=== PATIENT | male | born 1955 | race Caucasian/White ===

== ENCOUNTER 2017-06-01 11:00 | Outpatient (RCR) | payer OTHER, SELFPAY ==
--- NOTE | 2017-06-01 14:23 | IE_ITS ---
Date: June 01, 2017 Referring: Jason Childs M.D. M.D. Diagnosis: right tensor fascia magi syndrome SUBJECTIVE: History of Present Illness: Fer reports a multi year history of intermittent lateral right thigh discomfort, posterior laterally. Noted increasing symptoms when walking for further distances. Also, has symptom reproduction with repetitive squatting and bending. We reviewed his referral, which indicates this is bilaterally, but he reports it is primarily on the right. Pain Ratin/10 at time of I.E., but can increase to 9/10 at its worst, which he uses some ice and BioFreeze for. Most recently, this occurred in bed when trying to sleep on his right side. Current Level of Function: Symptoms become exacerbated with repetitive squatting and right side lying. Also, has pain with longer distance walking. Previous Treatment: N/A Social: Retired from [employer] where he worked in [employer]. He is living with his significant other. Comorbidities: HBP, occasional parathesias in the right thigh, arthritis, thyroid dysfunction and left knee scope more than 5 years ago. Medications: See patient EMR. Quality of Life: ____ Excellent __x__ Good ____ Fair ____ Poor Standardized Measures: LEFS score: __9%__ OBJECTIVE: Posture: Obese male with mild pronation bilaterally. Tends to have increased toe out on the right. Observation: (behavior, atrophy, skin color, etc.) Does not appear to be in any acute discomfort. Gait: WNL and non antalgic. Palpation: Pain is elicited with palpation through the posterior anterior aspect of the right greater trochanter. Painfree with PA mobs to the lumbar spine. Painfree lumbar paraspinal palpation. Painfree throughout the glute medius and piriformis on the right. Increased complaints of discomfort through the proximal 2/3 of the IT band on the right; (-) on the left. Painfree throughout the lateral knee jt line palpation and IT band attachment distally. ROM: Hip ROM into flexion WNL bilaterally (painfree), ext rotation 35 A and 40 AA on the left; 35 A and 45 AA on the right, int rotation 10 to 15 A and 25 AA bilaterally, hip abduction 30 A and 35 AA bilaterally, knee flexion and extension WFL (painfree). Strength: 4/5 glute medius and lambert on the right (painfree) vs. 5/5 on the left. Quads and hams 5/5 bilaterally. Hip flexion 5/5 bilaterally. The patient is able to toe and heel walk independently. Flexibility: (+) ALFRED testing bilaterally, right more than left, regarded noted tightness. (+) Pedro test bilaterally, 5 above neutral. Hamstring length 65 bilaterally with SLR. Quadriceps 4 heel to buttock bilaterally in prone. Neuro: Sensation intact to light touch throughout bilateral LEs. DTRs not assessed. Special Tests: (-) dural tension testing with SLR or slump test. (-) ralph testing. (-) scour sign. (-) stork sign. Treatment: IE: 76932 x1 Therapeutic procedure: 85261 x1 Patient Education: I.E. followed by instruction in a HEP for IT band and piriformis stretching and application of ice. Direct treatment time: 9:30 til 10:30 A.M. ASSESSMENT: Patient is a 62-year-old male, referred for PT services with the diagnosis of bilateral tensor fascia magi syndrome. Patient presents with clinical signs and symptoms consistent with trochanteric bursitis with proximal IT band syndrome on the right (no significant findings on the left), as demonstrated by the following impairment level findings: Impaired motor function, muscle performance and ROM associated with connective tissue dysfunction Impairments are contributing to the following functional limitations: as indicated above Patient is assessed as: __x__ Low 24255 ____ Moderate 67496 ____ High 28624 complexity, based on the following: History: (list) per comorbidities Examination: (list) as functional limitations indicated above Presentation: (list) stable and uncomplicated Decision-Making: (list standardized measure) low based on the LEFS score ____ Patient requires skilled PT intervention to remediate the above functional limitations to return to: __x__ Premorbid level of function Prognosis: ____ Excellent __x__ Good ____ Fair ____ Poor STG: __6__ weeks. 1) (-) ALFRED testing 2) (-) Pedro testing 3) decrease pain by 50% 4) hip abductor / extensor strength greater than or equal to 4+/5 on the right LTG: __10__ weeks. 1) return to premorbid level of function 2) painfree functional mobility 3) able to resume his walking regime without symptom exacerbation PLAN: Patient to be seen 1x per week, for 10 weeks, adjusting frequency of visits per patient symptoms and response to treatment. Treatment to include: Manual therapy - 93766 - AA/PROM of the right hip into rotational motions as well as abduction using hold relax. Also, worked on IASTM via Graston Techniques through the IT band, posterior greater trochanteric region and TFL musculature. Will consider implementation of this on the left if he notices symptom onset. Will work on restoring glute lambert and glute medius strength as well. Session ended with cryotherapy to the hip and thigh. He agrees with this POC, and is to be discharged when the above goals have been met. Thank you for this referral. Please do not hesitate to contact me with any questions or concerns regarding this patient's plan of care.
--- NOTE | 2017-06-09 11:00 | PTTR_ITS ---
DATE: 06/09/17 SUBJECTIVE: Fer reports that his R hip is actually feeling pretty well. Has been compliant with his stretching and feeling looser in the hip. Has been holding up with his driving responsibilities without pain. Manual therapy: ([id number]). ITB, piriformis stretching using hold/relax. R hip mobilizations inferiorly, laterally followed by instrument assisted soft tissue mobilizations via Graston technique to R greater trochanter, ITB with fanning and sweeping with GT 1 and 4 followed by lateral hamstring, mid belly bicep femoris strumming with GT3 and some ITB splaying with GT4 in loose pack position from a muscular tension stand point. Ended with cryotherapy for 10 mins R thigh laterally in L sidelying position. Direct treatment time: 30 mins Total treatment time: 40 mins A: Holding up well with functional use of R LE without symptom exacerbation. Hasn't really encouraged any of the symptoms that he was initially evaluated for. P: Re-check next week, if he is holding up well at that visit, will likely put on hold for 1-2 week period. MM/dp
--- NOTE | 2017-06-18 08:20 | NT_ITS ---
Patient cancelled today's scheduled appointment. He is not feeling well. Has another appointment next Wednesday, the . Daina Graf Ross Lift Operator
--- NOTE | 2017-06-23 13:35 | PTTR_ITS ---
DATE: 06/23/17 SUBJECTIVE: Fer reports 75% improvement since starting P.T. Is compliant with his stretching, and finds this quite beneficial in controlling the lateral hip pain. Did experience mild left hip discomfort when driving to [place] and back. He has been more mindful of taking time to get out of the car, and this seems to have helped some of his leg discomfort. Is also complaining of mild shoulder tightness and pain with prolonged driving. OBJECTIVE: Manual therapy: ([id number]). Bilateral hip mobs, inferiorly and laterally, as well as manual distraction via leg pulls. Performed ITband and piriformis stretching via hold relax technique, left and right. Did apply PRTs to the right glute medius in prone. Strength tests 4+/5 for hip abduction and hip extension bilaterally. This was painfree. Therapeutic procedures ([id number]). * x See flow sheet: progressed HEP with standing corner pec stretches for postural correction and a standing cross legged lateral posterior hip stretch, left and right. Elected to hold on cryo post treatment. Direct treatment time: 11:00 til 11:45 A.M. Assessment: Holding up well with independent symptom management. I do feel he would benefit from cutting back on P.T., and he is in agreement. Plan: Recheck Fer x2 weeks. At that time, will talk about discharge with progression of HEP with particular focus on posterior and lateral hip stretching and capsular stretching. MM/gc
--- NOTE | 2017-08-06 11:07 | PTIDS_ITS ---
DATE: 08/06/17 REFERRING PROVIDER: Dr. Childs DIAGNOSIS: Tensor fascia magi syndrome ___X__ Patient did not return for a follow up appointment(s). ___x__ Patient had achieved an improvement in condition up to their prior level of function. Patient was instructed in a customized home exercise program to continue independently at home. The patient was given the option to call and schedule an appointment any time within a 3-week period if they experience a return of symptoms. Patient did not schedule follow up within this time frame. COMMENTS: ___X__ Discharge from PT at this time. ___[]__ Medicare: Unable to assign G-Codes due to the lack of a formal follow up visit. Patient did not schedule further visits after their last attended appointment and therefore a final assessment could not be performed.
== END 2017-06-28 | disposition home or self-care (01) ==
LOC: PT 06-09 11:00
PROVIDERS: PCP Family Medicine; Referring Provider Family Medicine; Visit Provider Family Medicine
DX: M76.31 Iliotibial band syndrome, right leg (principal)
CPT/HCPCS: 97110; 97140; 97161

== ENCOUNTER 2018-02-17 10:23 | Outpatient (CLI) | payer OTHER, SELFPAY ==
[2018-02-17 12:25] LABS: Anion Gap 8.6 mmol/L (3-11); BUN 14 mg/dL (7-18); CO2 30.4 mmol/L (21.0-32.0); CREATININE 0.86 mg/dL (0.70-1.30); Calcium 8.9 mg/dL (8.5-10.1); Chloride 104 mmol/L (98-107); Glucose 105 mg/dL (70-100); Potassium 3.7 mmol/L (3.5-5.1); Sodium 143 mmol/L (136-145); TSH (W/Ref FT4) 3.14 uIU/mL (0.358-3.74)
== END 2018-02-17 10:43 ==
PROVIDERS: PCP Family Medicine; Visit Provider Family Medicine
DX: E03.9 Hypothyroidism, unspecified (principal); I10 Essential (primary) hypertension
CPT/HCPCS: 36415; 80048; 84443

== ENCOUNTER 2019-01-10 08:22 | Outpatient (CLI) | payer OTHER, SELFPAY ==
[2019-01-10 12:36] LABS: Anion Gap 7.4 mmol/L (3-11); BUN 19 mg/dL (7-18); CO2 30.6 mmol/L (21.0-32.0); CREATININE 1.01 mg/dL (0.70-1.30); Calcium 9.2 mg/dL (8.5-10.1); Chloride 103 mmol/L (98-107); Glucose 123 mg/dL (70-100); Potassium 3.3 mmol/L (3.5-5.1); Sodium 141 mmol/L (136-145); TSH 3.54 uIU/mL (0.36-3.74)
== END 2019-01-10 08:42 ==
PROVIDERS: PCP Family Medicine; Visit Provider Nurse Practitioner
DX: R42 Dizziness and giddiness (principal)
CPT/HCPCS: 36415; 80048; 84443

== ENCOUNTER 2019-03-15 08:36 | Outpatient (CLI) | payer OTHER, SELFPAY ==
[2019-03-15 10:43] LABS: Potassium 3.5 mmol/L (3.5-5.1)
[2019-03-15 10:52] LABS: Hemoglobin A1C 5.4 % (3.8-5.6)
== END 2019-03-15 08:56 ==
PROVIDERS: PCP Family Medicine; Visit Provider Family Medicine
DX: Z00.00 Encounter for general adult medical examination without abnormal findings (principal); Z13.1 Encounter for screening for diabetes mellitus
CPT/HCPCS: 36415; 83036; 84132

== ENCOUNTER 2020-09-03 10:34 | Outpatient (CLI) | payer MEDICARE, OTHER, SELFPAY ==
[2020-09-04 13:04] LABS: COVID-19 RT-PCR UVMMC Result Negative (Negative)
== END 2020-09-03 10:35 | disposition home or self-care (01) ==
LOC: LBO 10:34
PROVIDERS: PCP Family Medicine; Visit Provider Family Medicine
DX: Z20.822 Contact with and (suspected) exposure to COVID-19 (principal)
CPT/HCPCS: U0003; U0005

== ENCOUNTER 2021-01-16 07:31 | Outpatient (CLI) | payer MEDICARE, OTHER, SELFPAY ==
--- NOTE | 2021-01-16 07:00 | DI.RAD_ITS ---
Exam(s) XR KNEE RT 3V AP,LAT,NESHA EXAM: XR KNEE RT 3V AP,LAT,NESHA CLINICAL HISTORY: knee pain on right for one week; hx of arthroscopy,M25.561. TECHNIQUE: 2D digital imaging was performed. COMPARISON: CR RIGHT KNEE 3 VIEWS from 10/06/2010 FINDINGS: There is no evidence of acute fracture although there does appear to be small joint effusion. There are mild-moderate degenerative changes in the medial compartment, slightly progressed from prev ious. Mild degenerative changes in the lateral compartment. Mild degenerative changes in the patell ofemoral compartment. Calcifications again noted off the anterosuperior aspect of the patella-insert ion site of the quadriceps tendon. There is also been progression of vascular calcification in popli teal artery. No osseous lesions. Bone density normal. IMPRESSION: Some progression of degenerative joint osteoarthritic changes when compared to the prior study of 201 1. DATA REPOSITORY: RADIATION DOSE DELIVERED:
== END 2021-01-16 07:51 ==
PROVIDERS: PCP Family Medicine; Visit Provider Family Medicine
DX: M25.561 Pain in right knee (principal); M17.11 Unilateral primary osteoarthritis, right knee
CPT/HCPCS: 73562

== ENCOUNTER 2021-02-25 11:49 | Outpatient (CLI) | payer MEDICARE, OTHER, SELFPAY ==
--- NOTE | 2021-02-25 11:45 | RT.EKG_ITS ---
APPROVED REPORT Exam: Resting ECG Reason for Exam: preop Patient Location: O HR:70 bpm ECG Measurements Heart Rate 70 AXIS RI 179 P 52 QRSd 95 QRS 4 QT 398 T 56 QTc 430 Conclusion Sinus rhythm...normal P axis, V-rate 60- 99 Normal Electrocardiogram
== END 2021-02-25 11:50 | disposition home or self-care (01) ==
LOC: DI.CM 11:51
PROVIDERS: PCP Family Medicine; Visit Provider Family Medicine
DX: Z01.818 Encounter for other preprocedural examination (principal)
CPT/HCPCS: 93010

== ENCOUNTER 2021-03-03 00:41 | Outpatient (CLI) | payer MEDICARE, OTHER, SELFPAY ==
--- NOTE | 2021-03-03 07:00 | DI.NM_ITS ---
APPROVED REPORT Exam: Exercise Treadmill Patient Location: Out-Patient Room/Bed: Stress Nurse: Cecily Broussard RN Ordering Provider:FE MAHMOOD, Contact Number: [phone] BMI: 34.66 Baseline Rhythm: Sinus Rhythm Indications: Chest pain Medical History Medical History: Hypertesnsion, hyperlipidemia, asthma, obesity, hypothyroidism, SVT, dizziness, ches t pain Cardiac Medications: Metoprolol succinate, aspirin, albuterol sulfate, famotidine, levothyroxine, jessica denafil Allergies: Oxycodone Cardiac Risk Factors: Hypertension, hyperlipidemia, asthma, obesity, smoker (former), family hx Previous Cardiac Procedures: None Pretest Chest Pain Characteristics: None Exercise History: Sedentary Physical Disabilities: None Lung Sounds: Clear to auscultation, Clear to auscultation Heart Sounds: Regular Stress Test Details Test: Exercise stress testing was performed using a Shaquille protocol. Nuclear Acquisition: Rest Tc-99m/Stress Tc-99m 1 day Rest Isotope: Tc-99m Sestamibi. Dose: 12.0 Date: 03/03/2021 Injection Time: 0845 Stress Isotope: Tc-99m Sestamibi. Dose: 39.0 Date: 03/03/2021 Injection Time: 1022 HR Resting HR Supine: 75 bpm Max Heart Rate (APMHR): 154.430373 bpm Resting HR Standin bpm Target HR (85% APMHR): 130.048940 bpm Max HR Achieved: 148 bpm % of APMHR: 96.10 Recovery HR: 98 bpm HR response to stress: Normal HR response to stress Comment: Metoprolol succinate held for 24 hrs prior to test BP Resting BP Supine: 138/80 mmHg Resting BP Standin/78 mmHg Max BP: 168/82 mmHg Recovery BP: 150/80 mmHg BP response to stress: Blunted blood pressure response to stress. ECG Resting ECG: Sinus Rhythm Ectopy: None Stress ECG: Sinus Tachycardia ST Change: Horizontal ST depression, Upsloping ST depression Lead(s): II, III, AVF Stage: [address] Deviation: 1 mm Arrhythmia: Frequent PACs, occasional multifocal PVCs, couplet Recovery ECG: Sinus Rhythm Recovery ST Change: Horizontal ST depression Lead(s): II, III, AVF Recovery ST Deviation: 0.5 mm Recovery Arrhythmia: Frequent PACs, occasional multifocal PVCs Comment: ST depressions return to baseline by minute 7 of recovery Clinical Reason for Termination: Fatigue Stress Symptoms: General Fatigue, mild dyspnea Exercise duration: 8 min58 sec Highest Stage Reached: Stage 3: 3.4 mph at 14% grade. Exercise capacity: 10.16 METs Horn Treadmill Score: 8.1 Rate Pressure Product: 11322 Stress ECG Conclusion 1. Resting electrocardiogram was normal 2. Patient exercised on the Shaquille protocol and completed a workload of 10.16 METS, stopping due to fa tigue 3. Normal heart rate response to exercise. Patient achieved 96% of predicted heart rate for age. Mi ldly blunted blood pressure response to exercise 4. Electrocardiographically the test was negative for myocardial ischemia 5. Atrial and ventricular ectopic beats were noted Horn Treadmill Score is 8.1 which is Low risk. Stress Test Summary STAGE Time (mins) Speed (mph) Grade (%) HR BP SYMPTOMS METS Supine 75 138/80 Standing 77 138/78 SpO2 95% 1 3 1.7 10 103 148/82 Mild SOB, SpO2 96% 4.6 2 6 2.5 12 115 144/86 SpO2 96% 7 3 9 3.4 14 143 146/84 SpO2 96% 10.2 1 min recovery 129 148/84 SOB resolved, SpO2 97% 3 min recovery 107 168/82 SpO2 97% 6 min recovery 98 150/80 SpO2 97% MPI Conclusion Normal myocardial perfusion without ischemia or prior infarction EF 58% Radiologist Interpretation Radiologist agrees with Retail Merchandising Specialist's Interpretation. Radiologist Interpretation by: Kristen Awan MD Interpretation Date/Time: 03/03/2021 16:02:05
== END 2021-03-03 01:01 ==
PROVIDERS: PCP Family Medicine; Visit Provider Family Medicine
DX: R07.9 Chest pain, unspecified (principal); I10 Essential (primary) hypertension; E78.5 Hyperlipidemia, unspecified; J45.909 Unspecified asthma, uncomplicated; E66.9 Obesity, unspecified; Z87.891 Personal history of nicotine dependence; Z82.49 Family history of ischemic heart disease and other diseases of the circulatory system; I49.1 Atrial premature depolarization; I49.3 Ventricular premature depolarization
CPT/HCPCS: 78452; 93016; 93018; 93017

== ENCOUNTER 2021-03-07 03:45 | Outpatient (CLI) | payer MEDICARE, OTHER, SELFPAY ==
[2021-03-07 11:17] LABS: Hemoglobin A1C 5.3 % (<5.7)
[2021-03-07 12:09] LABS: CREATININE 1.1 mg/dL (0.70-1.30); Calculated LDL 136 mg/dL (<100); Cholesterol 217 mg/dL (<200); HDL Cholesterol 58 mg/dL (40-60); Potassium 3.4 mmol/L (3.5-5.1); Triglyceride 119 mg/dL (<150)
== END 2021-03-07 03:46 | disposition home or self-care (01) ==
LOC: LBO 03:45
PROVIDERS: PCP Family Medicine; Visit Provider Family Medicine
DX: R73.9 Hyperglycemia, unspecified (principal); I10 Essential (primary) hypertension; E78.5 Hyperlipidemia, unspecified
CPT/HCPCS: 36415; 80061; 82565; 83036; 84132

== ENCOUNTER 2021-04-14 01:24 | Outpatient (CLI) | payer MEDICARE, OTHER, SELFPAY ==
[2021-04-14 20:12] LABS: COVID-19 PCR Negative (Negative)
[2021-04-14 20:14] LABS: Source Nasal/Nares
== END 2021-04-14 01:25 | disposition home or self-care (01) ==
LOC: LBO 01:24
PROVIDERS: PCP Family Medicine; Visit Provider Ophthalmology Ophthalmic Plastic and Reconstructive Surgery
DX: Z20.822 Contact with and (suspected) exposure to COVID-19 (principal); Z01.818 Encounter for other preprocedural examination
CPT/HCPCS: 87635

== ENCOUNTER → 2021-09-08 12:46 | Outpatient (CLI) | payer MEDICARE, OTHER, SELFPAY ==
--- NOTE | 2021-09-08 10:30 | DI.RAD_ITS ---
Exam(s) XR HAND LT COMPLETE EXAM: XR HAND LT COMPLETE CLINICAL HISTORY: Left hand pain and swelling S62.339A FX. TECHNIQUE: 2D digital imaging was performed. COMPARISON: CR RIGHT THUMB from 01/16/2013 FINDINGS: 3 views There is soft tissue swelling. No acute fractures. No radiopaque foreign body. No radiographic ban dence of osteomyelitis. IMPRESSION: No fractures evident. DATA REPOSITORY: RADIATION DOSE DELIVERED:
== END ==
PROVIDERS: PCP Family Medicine; Visit Provider Physician Assistant Medical
DX: M79.642 Pain in left hand; M79.89 Other specified soft tissue disorders; S62.339A Displaced fracture of neck of unspecified metacarpal bone, initial encounter for closed fracture
CPT/HCPCS: 73130

== ENCOUNTER 2021-11-12 09:36 | Emergency (ER) | payer MEDICARE, OTHER, SELFPAY ==
[2021-11-12] VITALS (35 sets, daily range): BP systolic 161–184; BP diastolic 76–95; PULSE 71–89; RESP 12–22; TEMP 36.7; O2SAT 96
--- NOTE | 2021-11-12 09:30 | RT.EKG_ITS ---
APPROVED REPORT Exam: Resting ECG Reason for Exam: chest pressure Patient Location: E HR:76 bpm ECG Measurements Heart Rate 76 AXIS WA 170 P 60 QRSd 94 QRS 13 QT 402 T 34 QTc 452 Conclusion Sinus rhythm...normal P axis, V-rate 60- 99 Physician: no stemi, unchanged from prior
--- NOTE | 2021-11-12 10:00 | DI.RAD_ITS ---
Exam(s) XR CHEST 2V PA LATERAL EXAM: XR CHEST 2V PA LATERAL CLINICAL HISTORY: chest pain. TECHNIQUE: 2D digital imaging was performed. COMPARISON: CR CHEST 2 VIEWS PA,LAT from 03/09/2016 FINDINGS: 2 views: Heart size is upper normal. The mediastinum is not widened. Lungs are clear. No infiltrates nor pleural effusions. IMPRESSION: No acute pulmonary findings. DATA REPOSITORY: RADIATION DOSE DELIVERED:
--- NOTE | 2021-11-12 10:01 | W.ED.GENAD ---
Discharge Plan Disposition Patient Disposition: HOME Condition: Improving Discharge Details Clinical Impression: Chest pain Primary Care Provider: Alvaro Hernadez ED Provider: Salvador Rosado Home Meds and New Rx's Prescriptions: Continued naproxen sodium [Aleve] 220 mg capsule 440 mg PO HS loratadine [Allergy Relief (loratadine)] 10 mg tablet 10 mg PO DAILY aspirin [Aspir-81] 81 MG tablet,delayed release (DR/EC) 81 mg PO DAILY Qty: 90 triamcinolone acetonide 80 GM ointment 80 gm Topical BID Qty: 1 omeprazole 40 mg capsule,delayed release(DR/EC) 40 mg PO DAILY Qty: 90 3RF albuterol sulfate [Ventolin HFA] 90 mcg/actuation HFA aerosol inhaler 2 puff inhalation QID PRN (Reason: shortness of breath or wheezing) Qty: 8.5 1RF famotidine [Pepcid] 20 mg tablet 20 mg PO DAILY Qty: 90 3RF hydrochlorothiazide 25 mg tablet 25 mg PO DAILY Qty: 90 3RF levothyroxine 75 mcg tablet 75 mcg PO DAILY Qty: 90 3RF metoprolol succinate 50 mg tablet extended release 24 hr 50 mg PO DAILY Qty: 90 3RF sildenafil [Viagra] 100 mg tablet 100 mg PO DAILY PRN (Reason: sexual activity) Qty: 10 2RF Rx Instructions: administer 30 minutes to 4 hours before activity Discharge Instructions Instructions: Chest Pain (ED) Additional Instructions: At this time no obvious source was noted for your chest pain and emergency work-up was negative at this time. While I do feel that you are at low risk for discharge home if you develop any new or significant worsening of symptoms or change in your condition return immediately to the emergency department for further reassessment. Otherwise continue to take your normal daily medications and follow-up with your primary care provider for reassessment and further treatment as needed. Referrals: Alvaro Hernadez MD [Primary Care Provider] - 5 days Discharge Data Discharge Date/Time-TO BE ENTERED AT DEPARTURE: 11/12/21 13:49 Medical Decision Making Patient presenting to the emergency department for chief complaint of chest pain. Patient states that this started approximately 1 hour prior to arrival and he was driving. He states that it only lasted a couple minutes and then self resolved but then returned at a lesser degree but still is present. He describes this as a chest pressure and tightening on the left side of his chest with no radiation. Patient denies all other symptoms. Physical exam is unremarkable. We will plan on doing standard cardiac work-up. Of notation with review of previous medical records patient did have a stress test within the last year that showed no worrisome findings. Patient has past medical history of hypertension chewing tobacco use and SVT Please see physician interpretation for full interpretation of EKG but patient is in sinus rhythm with no findings to suggest STEMI. Review of labs show a unremarkable CBC, CMP with slightly low potassium at 3.1, carbon dioxide 32.7, elevated total bili at 1.4 and negative initial troponin. Chest x-ray reviewed by myself and radiologist and shows no acute worrisome findings. Reassessed patient and patient continues to endorse no pain or discomfort. Will give patient oral potassium pending delta troponin. Delta troponin is negative and patient continues to state he is pain-free. Did further discuss situation prior to chest pain and he does state that he had been thinking about the current rough social situation with significant other that has been difficult for him. Question of possible anxiety causing symptoms. Given otherwise negative work-up and that patient has had stress test within the last year and no worrisome findings I do feel that patient is able to be safely discharged to primary care for further follow-up. Patient is agreeable to this and states no concern after discussion of potential risks of discharge versus further inpatient work-up which I do not feel he needs at this time. After discussion of diagnosis and plan of care patient has no further needs, questions, or concerns and states clear understanding to return to the emergency department for any worsening symptoms. This documentation was generated using [employer] system, please disregard any oddities of phrase or misspellings. Imaging Data Radiologic Study: Attestation: I personally reviewed and interpreted this imaging study as follows: Imaging: X-Ray Radiologist's impression: FINDINGS: 2 views: Heart size is upper normal. The mediastinum is not widened. Lungs are clear. No infiltrates nor pleural effusions. IMPRESSION: No acute pulmonary findings. HPI General Mode of arrival: ambulatory. Date/Time Provider Initiated Documentation: 11/12/21 09:40. Limitations to Documentation: no limitations. Information obtained by: patient, RN notes reviewed and old records reviewed. History of Present Illness 66 year old M presents to the emergency department with the chief complaint of Chest pain, described as moderate, Quality is described as other (Pressure -now resolved), and is localized to the chest. Patient reports no radiation. Patient started experiencing this hour(s) (1) and it has been intermittent. No relieving factors improve symptom(s), No exacerbating factors reported . Patient notes no other symptoms.. Patient did receive the following treatments prior to arrival, none Related Data Home Medications Medication Instructions Recorded Confirmed aspirin 81 mg tablet,delayed 81 mg PO DAILY #90 tab-caps 11/06/15 11/12/21 release (Aspir-) triamcinolone acetonide 0.025 % 80 gm topical BID ##1 03/25/16 11/12/21 topical ointment naproxen sodium 220 mg capsule 440 mg PO HS 02/15/19 11/12/21 (Aleve) omeprazole 40 mg capsule,delayed 40 mg PO DAILY #90 caps 10/17/19 11/12/21 release albuterol sulfate 90 mcg/actuation 2 puff inhalation QID PRN 06/12/20 11/12/21 aerosol inhaler (Ventolin HFA) shortness of breath or wheezing #8.5 grams famotidine 20 mg tablet (Pepcid) 20 mg PO DAILY #90 tab-caps 12/04/20 11/12/21 hydrochlorothiazide 25 mg tablet 25 mg PO DAILY #90 tabs 12/04/20 11/12/21 levothyroxine 75 mcg tablet 75 mcg PO DAILY #90 tab-caps 12/04/20 11/12/21 metoprolol succinate 50 mg 50 mg PO DAILY #90 tabs 12/04/20 11/12/21 tablet,extended release 24 hr loratadine 10 mg tablet (Allergy 10 mg PO DAILY 02/25/21 11/12/21 Relief (loratadine)) sildenafil 100 mg tablet (Viagra) 100 mg PO DAILY PRN sexual 07/21/21 11/12/21 activity #10 tabs Previous Rx's Medication Instructions Recorded omeprazole 40 mg capsule,delayed 40 mg PO DAILY #90 caps 10/17/19 release albuterol sulfate 90 mcg/actuation 2 puff inhalation QID PRN 06/12/20 aerosol inhaler (Ventolin HFA) shortness of breath or wheezing #8.5 grams famotidine 20 mg tablet (Pepcid) 20 mg PO DAILY #90 tab-caps 12/04/20 hydrochlorothiazide 25 mg tablet 25 mg PO DAILY #90 tabs 12/04/20 levothyroxine 75 mcg tablet 75 mcg PO DAILY #90 tab-caps 12/04/20 metoprolol succinate 50 mg 50 mg PO DAILY #90 tabs 12/04/20 tablet,extended release 24 hr sildenafil 100 mg tablet (Viagra) 100 mg PO DAILY PRN sexual 07/21/21 activity #10 tabs Allergies Allergy/AdvReac Type Severity Reaction Status Date / Time oxycodone HCl [From Percocet] Allergy Verified 11/12/21 09:49 General Stated Complaint: Chest Pain MANDY: 2 Review of Systems Constitutional Constitutional: Denies chills, Denies fever(s) and Denies malaise Cardiovascular Cardiovascular: Reports as per HPI, Reports chest pain, Denies chest pain with activity, Denies syncope, Denies irregular heart rhythm, Denies palpitations and Denies dyspnea Respiratory Respiratory: Denies cough, Denies hemoptysis and Denies dyspnea Gastrointestinal Gastrointestinal: Denies abdominal pain, Denies nausea and Denies vomiting Neurologic Neurologic: Denies syncope Psychiatric Psychiatric: Reports anxiety and Reports depression Endocrine Endocrine: Denies cold intolerance, Denies heat intolerance and Denies palpitations PFSH All Active Problems (Updated 11/12/21 @ 13:37 by Salvador Rosado NP) Flushing (Acute) Blocked tear duct (Acute) Posterior right knee pain (Acute) Seborrheic keratosis (Acute) Right forearm pain (Acute) Low back pain (Acute) Lightheadedness (Acute) Erectile dysfunction (Acute) History of arthroscopy of knee (Acute) History of wheezing (Acute) Rectal hemorrhage (Acute) Status post foot surgery (Acute) Caregiver burden (Acute 12/15/13) Insomnia (Chronic) Hypothyroid (Chronic) check TSH Obesity (Chronic) continue to work on weight loss Dupuytren's contracture (Chronic) SVT (supraventricular tachycardia) (Acute) Rosacea (Acute) Peyronie disease (Acute) Neuropathic pain, arm (Acute) left arm that is improved Kidney stone (Acute 01/28/06) bilateral Essential hypertension (Acute 12/08/12) check labs continue same meds Dizziness (Acute 11/03/16) Chewing tobacco use (Acute) Chest pain (Acute) normal MPI 12/2007 normal MPI 10/14 Atopic dermatitis (Acute) Acquired hallux rigidus (Acute) Medical History Atopic dermatitis Kidney stone Neuropathic pain, arm Rosacea SVT (supraventricular tachycardia) Surgical History Arthroplasty of knee (~12/2010) FOOT SURGERY Hallux rigidus of both feet with surgery in 2005 Family History Mother , age 79 Heart disease Neoplasm LUNG Sister No problems noted. Maternal Grandfather No problems noted. Paternal Grandfather Prostate cancer Maternal Grandmother Cancer Paternal Grandmother Cancer Sister No problems noted. Sister No problems noted. Daughter No problems noted. Social History Smoking/Tobacco Use Status: Former Tobacco Use Quit Date: 03/01/87 Tobacco: How many years used: 22 Second Hand Exposure: Yes Smoking risk assessment performed?: Yes Alcohol Intake: current Alcohol Intake frequency: a few times a month Alcohol type: beer Drug use: Never Substance use type: does not use Caregiver/Support person: No Household members: significant other Housing: house Communication Needs: None Do you need help understanding health information?: Never Pets and animals: Yes Pets and animals: dog(s) Do you think of yourself as: straight/heterosexual Current gender identity: male What is your relationship status?: living with partner How often do you talk on the phone with friends or family?: once per week How often do you get together with friends or relatives?: once per week How often do you attend latter-day or presybeterian services?: 4 or more times per year Do you belong to any clubs or organized social groups?: yes Panel score (0-1 are the most socially isolated patients): 3 What type of physical activity do you participate in: walking Duration: < 15 minutes/day Frequency: 1-2 times per week Special alex needs: No Seatbelt use: always Helmet use: No Drive intox 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: No Do you feel safe at home: Yes Do you feel safe in your relationship?: Yes Exam Const General: cooperative, healthy appearing, comfortable, no acute distress, not diaphoretic and not ill appearing Nutritional Appearance: average body habitus Orientation: alert, awake and oriented x3 Limitations: mental status not altered Neck Neck: normal visual inspection, full ROM, trachea midline, supple and no anterior neck swelling Carotids: normal carotid upstroke and no bruits Chest Chest: normal inspection of the chest Resp Effort & Inspection: normal respiratory effort and able to speak in complete sentences Auscultation: clear to auscultation bilaterally Cardio Jugular venous pressure: no JVD Palpation: normal PMI Rate: regular rate Rhythm: regular rhythm Heart Sounds: S1 normal, S2 normal, no click, no gallops, no murmurs and no rubs Bruits: no abdominal aortic bruits and no carotid bruits Pulses: radial pulses present bilaterally 2+ GI Inspection: normal to inspection Palpation: soft, no aortic enlargement, no pulsatile masses and nontender Auscultation: normal bowel sounds Skin General skin exam: no rashes or lesions noted Neuro General: patient alert, patient awake, patient oriented x3, tone normal and moves all extremities Course Vital Signs Vital signs: Vital Signs Temperature 36.7 C 11/12/21 09:39 Pulse 84 11/12/21 09:39 Respiratory Rate 17 11/12/21 09:39 Blood Pressure 175/87 H 11/12/21 09:39 Pulse Oximetry 96 11/12/21 09:39 Temperature 36.7 C 11/12/21 09:39 Temperature Source Temporal Artery Scan 11/12/21 09:39 Pulse 84 11/12/21 09:39 Respiratory Rate 21 11/12/21 09:44 Respiratory Effort Non-Labored 11/12/21 09:44 Respiratory Depth Normal 11/12/21 09:44 Respiratory Pattern Normal 11/12/21 09:44 Blood Pressure 175/87 H 11/12/21 09:39 Blood Pressure Position Sitting 11/12/21 09:39 Pulse Oximetry 96 11/12/21 09:39 Oxygen Delivery Method Room Air 11/12/21 09:39 Oxygen Flow Rate 0 11/12/21 09:39 Pain Level 0 11/12/21 09:44 PAWSS Have you Been Recently Intoxicated or Drunk Within the Last 30 days?: No Have you Ever Experienced Previous Episodes of Alcohol Withdrawal?: No Have you ever Experienced Withdrawal Seizures?: No Have you ever Experienced Delirium Tremens(DT)s?: No Have you ever undergone Alcohol Rehabilitation Treatment (i.e, inpt ot outpatient treatment programs)?: No Have you ever Experienced Blackouts?: No Have you ever Combined Alcohol with other Downers within the last 90 days?: No Have you ever Combined Alcohol with any other Substance of Abuse during the last 90 days?: No Result: 0
[2021-11-12 10:23] LABS: Abs Immature Grans 0.02 10^3/uL (0.0-0.06); Absolute Basophil Count 0.04 10^3/uL (0.0-0.2); Absolute Eosinophil Count 0.11 10^3/uL (0.0-0.7); Absolute Lymphocyte Count 1.13 10^3/uL (1.2-3.4); Absolute Monocyte Count 0.72 10^3/uL (0.1-0.8); Absolute Neutrophil Count 4.41 10^3/uL (1.2-6.7); Basophils % 0.6; Eosinophils % 1.7; HCT 46.1 % (40.0-50.0); HGB 15.7 g/dL (13.5-17.5); Immature Grans % 0.3; Lymphocytes % 17.6; MCH 30.3 pg (27.0-33.0); MCHC 34.1 % (32.0-36.0); MCV 89 fL (80-95); MPV 10.3 fL (8.0-11.0); Monocytes % 11.2; Neutrophils % 68.6; Platelet Count 218 10^3/uL (130-400); RBC 5.18 10^6/uL (4.36-5.78); RDW 13.2 % (11.8-14.1); RDW-SD 43.3 fL; WBC 6.43 10^3/uL (4.4-10.8)
[2021-11-12 10:44] LABS: ALT 26 U/L (16-63); AST 18 U/L (15-37); Albumin 4.4 g/dL (3.4-5.0); Alkaline Phosphatase 97 U/L (46-116); Anion Gap 6.3 mmol/L (3-11); BUN 12 mg/dL (7-18); Bilirubin, Total 1.4 mg/dL (0.2-1.0); CO2 32.7 mmol/L (21.0-32.0); Calcium 9.3 mg/dL (8.5-10.1); Chloride 102 mmol/L (98-107); Estimated GFR 82.49 (mL/min/1.73m2); Glucose 109 mg/dL (74-106); Magnesium 2.1 mg/dL (1.8-2.4); Potassium 3.1 mmol/L (3.5-5.1); Sodium 141 mmol/L (136-145); Total Protein 7.8 g/dL (6.4-8.2); Troponin I < 50 ng/L (<or=60)
[2021-11-12] MEDS: Potassium Chloride 20 MEQ TABCR 40 MEQ PO (11:52)
[2021-11-12 12:59] LABS: Troponin I < 50 ng/L (<or=60)
--- NOTE | 2021-11-12 15:58 | NUR.NOTE ---
Nursing Note: Referral faxed to PCP for re-assessment of chest pain in 3 days to 1 week.
== END 2021-11-12 13:49 | disposition home or self-care (01) ==
PROVIDERS: Emergency Provider Nurse Practitioner Family; PCP Family Medicine
DX: R07.9 Chest pain, unspecified (principal); E87.6 Hypokalemia; R79.81 Abnormal blood-gas level; R17 Unspecified jaundice; Z79.82 Long term (current) use of aspirin; Z87.891 Personal history of nicotine dependence
CPT/HCPCS: 36415; 80053; 93005; 99284; 71046; 83735; 84484; 85025; 93010; 99285

== ENCOUNTER 2021-11-20 08:24 | Outpatient (CLI) | payer MEDICARE, OTHER, SELFPAY ==
[2021-11-20 13:46] LABS: TSH (W/Ref FT4) 2.18 uIU/mL (0.36-3.74)
== END 2021-11-20 08:25 | disposition home or self-care (01) ==
LOC: LOS 08:24
PROVIDERS: PCP Family Medicine; Visit Provider Family Medicine
DX: E03.9 Hypothyroidism, unspecified (principal)
CPT/HCPCS: 36415; 84443

== ENCOUNTER 2022-05-07 02:58 | Outpatient (CLI) | payer MEDICARE, OTHER, SELFPAY ==
[2022-05-07 13:08] LABS: Calculated LDL 157 mg/dL (<100); Cholesterol 224 mg/dL (<200); HDL Cholesterol 57 mg/dL (40-60); Potassium 3.6 mmol/L (3.5-5.1); Triglyceride 54 mg/dL (<150)
[2022-05-07 23:55] LABS: PSA, Screening 0.8 ng/mL (<=4.5)
== END 2022-05-07 02:59 | disposition home or self-care (01) ==
LOC: LOS 02:58
PROVIDERS: PCP Family Medicine; Visit Provider Family Medicine
DX: I10 Essential (primary) hypertension (principal); E78.5 Hyperlipidemia, unspecified; Z12.5 Encounter for screening for malignant neoplasm of prostate
CPT/HCPCS: 36415; 80061; 84153; 84132

== ENCOUNTER 2022-07-29 04:32 | Outpatient (CLI) | payer MEDICARE, OTHER, SELFPAY ==
[2022-07-29 12:55] LABS: TSH (W/Ref FT4) 2.82 uIU/mL (0.36-3.74); Vitamin B12 229 pg/mL (193-986)
[2022-07-29 21:02] LABS: Lab Add On Test DONE
[2022-07-29 21:37] LABS: Folate > 20.0 ng/mL (8.6-20.0)
== END 2022-07-29 04:33 | disposition home or self-care (01) ==
LOC: LOS 04:32
PROVIDERS: PCP Family Medicine; Visit Provider Family Medicine
DX: D64.9 Anemia, unspecified (principal); E03.9 Hypothyroidism, unspecified; E53.8 Deficiency of other specified B group vitamins
CPT/HCPCS: 36415; 82607; 82746; 84443

== ENCOUNTER 2022-10-01 04:28 | Outpatient (CLI) | payer MEDICARE, OTHER, SELFPAY | END 2022-10-01 04:29 | disposition home or self-care (01) | PROVIDERS: PCP Family Medicine; Visit Provider Family Medicine | DX: E53.8 Deficiency of other specified B group vitamins (principal); E03.9 Hypothyroidism, unspecified; K21.9 Gastro-esophageal reflux disease without esophagitis; R53.83 Other fatigue; I10 Essential (primary) hypertension; F41.8 Other specified anxiety disorders; Z79.899 Other long term (current) drug therapy | CPT/HCPCS: 36415; 80186 ==

== ENCOUNTER 2023-06-03 04:59 | Outpatient (CLI) | payer MEDICARE, OTHER, SELFPAY ==
[2023-06-03 13:04] LABS: Calculated LDL 154 mg/dL (<100); Cholesterol 222 mg/dL (<200); HDL Cholesterol 48 mg/dL (40-60); TSH (W/Ref FT4) 3.25 uIU/mL (0.36-3.74); Triglyceride 103 mg/dL (<150)
[2023-06-03 13:14] LABS: Vitamin D 25 Total 14.6 ng/mL (30-100)
== END 2023-06-03 05:00 | disposition home or self-care (01) ==
LOC: LOS 04:59
PROVIDERS: PCP Family Medicine; Visit Provider Family Medicine
DX: G40.909 Epilepsy, unspecified, not intractable, without status epilepticus; E78.5 Hyperlipidemia, unspecified; E03.9 Hypothyroidism, unspecified
CPT/HCPCS: 36415; 80061; 82306; 84443

== ENCOUNTER → 2023-09-20 08:43 | Outpatient (BNVA) | payer MEDICARE, OTHER, SELFPAY | PROVIDERS: PCP Family Medicine; Referring Provider Family Medicine; Visit Provider Student in an Organized Health Care Education/Training Program | DX: M72.0 Palmar fascial fibromatosis [Dupuytren] (principal); M65.341 Trigger finger, right ring finger | CPT/HCPCS: 20550; 99203; J1010 ==

== ENCOUNTER 2023-10-09 13:45 | Emergency (ER) | payer MEDICARE, OTHER, SELFPAY ==
[2023-10-09 13:58] VITALS: BP 164/74; PULSE 103; RESP 12; TEMP 38.6; O2SAT 95
--- NOTE | 2023-10-09 14:45 | DI.RAD_ITS ---
Exam(s) XR CHEST 2V PA LATERAL EXAM: XR CHEST 2V PA LATERAL CLINICAL HISTORY: covid, persistent cough. TECHNIQUE: 2D digital imaging was performed. COMPARISON: CR XR CHEST 2V PA LATERAL from 11/12/2021 FINDINGS: 2 views: Heart size is upper normal. The mediastinum is not widened. No new confluent infiltrates nor pleural effusions. No pulmonary edema. No pneumothorax. IMPRESSION: No obvious acute plain film pulmonary findings.Given the history of clinically indicated noninfused C T scan can be performed to determine if there are subtle ground-glass infiltrates not visible on plai n films. DATA REPOSITORY: RADIATION DOSE DELIVERED:
[2023-10-09] MEDS: Acetaminophen 325 MG TAB 650 MG PO (15:38)
[2023-10-09] MEDS: predniSONE 20 MG TAB 40 MG PO (15:38)
[2023-10-09] MEDS: Normal Saline 1,000 ML 1000 ML IV (15:38)
[2023-10-09 15:44] LABS: Lactate 1.1 mmol/L (0.6-1.4)
--- NOTE | 2023-10-09 15:44 | ED.GENADUL_ITS ---
Discharge Plan Disposition Patient Disposition: Home Condition: Stable Discharge Details Clinical Impression: COVID-19, Pneumonia Primary Care Provider: Alvaro Hernadez ED Provider: Mela Jim Home Meds and New Rx's Prescriptions: New benzonatate 100 mg capsule 100 mg PO Q4H PRNQty: 10 0RF prednisone 20 mg tablet 40 mg PO DAILY 3 Days Qty: 6 0RF doxycycline hyclate 100 mg tablet 100 mg PO BID 7 Days Qty: 14 0RF Continued diphenhydramine HCl [Unisom SleepGels] 50 mg capsule 100 mg PO QHS metoprolol succinate 50 mg tablet extended release 24 hr 50 mg PO DAILY Qty: 90 3RF famotidine [Pepcid] 20 mg tablet 20 mg PO DAILY PRN (Reason: gerd) Qty: 90 3RF losartan 50 mg tablet 50 mg PO DAILY Qty: 30 3RF amoxicillin-pot clavulanate 875-125 mg tablet 1 tab PO BID 7 Days Qty: 14 0RF Rx Instructions: Take with meal. Take 1 pill every 12 hours x 7days loratadine [Allergy Relief (loratadine)] 10 mg tablet 10 mg PO DAILY acetaminophen [Tylenol 8 Hour] 650 mg tablet extended release 1,300 mg PO Q8H PRN terbinafine HCl 250 mg tablet 250 mg PO DAILY Qty: 28 0RF Rx Instructions: take daily for one week for each of next 4 months, then start maintenance therapy terbinafine HCl 250 mg tablet 250 mg PO DAILY Qty: 7 3RF Rx Instructions: after starter dosing, take daily for one week every 3 months aspirin [Aspir-81] 81 MG tablet,delayed release (DR/EC) 81 mg PO DAILY Qty: 90 triamcinolone acetonide 80 GM ointment 80 gm Topical BID Qty: 1 omeprazole 40 mg capsule,delayed release(DR/EC) 40 mg PO DAILY Qty: 90 3RF sertraline 50 mg tablet 50 mg PO DAILY Qty: 30 0RF sildenafil [Viagra] 100 mg tablet 100 mg PO DAILY PRN (Reason: sexual activity) Qty: 30 2RF Rx Instructions: administer 30 minutes to 4 hours before activity cholecalciferol (vitamin D3) 625 mcg (25,000 unit) capsule 625 mcg PO QWEEK Qty: 30 2RF albuterol sulfate [Ventolin HFA] 90 mcg/actuation HFA aerosol inhaler 2 puff inhalation QID PRN (Reason: shortness of breath or wheezing) Qty: 8.5 1RF levothyroxine 75 mcg tablet 75 mcg PO DAILY Qty: 90 3RF Discharge Instructions Instructions: COVID-19 ED Additional Instructions: Take doxycycline for 7 days Take the prednisone daily you received a dose today Take Tylenol as needed for fever control Your liver enzymes are slightly elevated this is likely secondary to COVID-19, please have them rechecked by your primary care physician in the outpatient setting Please return should you develop new or worsening complaints Referrals: Alvaro Hernadez MD [Primary Care Provider] - 5 days Discharge Data Discharge Date/Time-TO BE ENTERED AT DEPARTURE: 10/09/23 16:24 HPI General Date/Time Provider Initiated Documentation: 10/09/23 14:44 . HPI Narrative: 68-year-old male with history of SVT presents with report of upper respiratory symptoms persistent fever for the past 5 days. Tested positive for COVID on Wednesday. Recently flew to [place]. Denies any chest pain or significant shortness of breath. Concerned regarding the persistent fever. States previously with COVID his fever was not quite as persistent. States he is feeling some general malaise persistent upper respiratory symptoms. Denies any urinary complaints rashes or lesions. Related Data Home Medications ?Medication ?Instructions ?Recorded ?Confirmed aspirin 81 mg tablet,delayed 81 mg PO DAILY #90 tab-caps 11/06/15 10/09/23 release (Aspir-) triamcinolone acetonide 0.025 % 80 gm topical BID ##1 03/25/16 10/09/23 topical ointment omeprazole 40 mg capsule,delayed 40 mg PO DAILY #90 caps 10/17/19 10/09/23 release loratadine 10 mg tablet (Allergy 10 mg PO DAILY 02/25/21 10/09/23 Relief (loratadine)) sertraline 50 mg tablet 50 mg PO DAILY #30 tabs 11/14/22 10/09/23 acetaminophen 650 mg 1,300 mg PO Q8H PRN 03/18/23 10/09/23 tablet,extended release (Tylenol 8 Hour) terbinafine HCl 250 mg tablet 250 mg PO DAILY #28 tabs 03/18/23 10/09/23 terbinafine HCl 250 mg tablet 250 mg PO DAILY #7 tabs 03/18/23 09/20/23 sildenafil 100 mg tablet (Viagra) 100 mg PO DAILY PRN sexual 05/31/23 10/09/23 activity #30 tabs diphenhydramine HCl 50 mg capsule 100 mg PO QHS 06/01/23 10/09/23 (Unisom SleepGels) famotidine 20 mg tablet (Pepcid) 20 mg PO DAILY PRN gerd #90 06/01/23 10/09/23 tab-caps metoprolol succinate 50 mg 50 mg PO DAILY #90 tabs 06/01/23 10/09/23 tablet,extended release 24 hr cholecalciferol (vitamin D3) 625 625 mcg PO QWEEK #30 caps 06/03/23 10/09/23 mcg (25,000 unit) capsule losartan 50 mg tablet 50 mg PO DAILY #30 tabs 07/22/23 10/09/23 albuterol sulfate 90 mcg/actuation 2 puff inhalation QID PRN 08/09/23 10/09/23 aerosol inhaler (Ventolin HFA) shortness of breath or wheezing #8.5 grams levothyroxine 75 mcg tablet 75 mcg PO DAILY #90 tab-caps 09/08/23 10/09/23 amoxicillin 875 mg-potassium 1 tab PO BID 7 days #14 tabs 10/07/23 10/09/23 clavulanate 125 mg tablet benzonatate 100 mg capsule 100 mg PO Q4H PRN #10 caps 10/09/23 doxycycline hyclate 100 mg tablet 100 mg PO BID 7 days #14 tabs 10/09/23 prednisone 20 mg tablet 40 mg (2 x 20 mg) PO DAILY 3 days 10/09/23 #6 tabs Previous Rx's ?Medication ?Instructions ?Recorded omeprazole 40 mg capsule,delayed 40 mg PO DAILY #90 caps 10/17/19 release sertraline 50 mg tablet 50 mg PO DAILY #30 tabs 11/14/22 terbinafine HCl 250 mg tablet 250 mg PO DAILY #28 tabs 03/18/23 terbinafine HCl 250 mg tablet 250 mg PO DAILY #7 tabs 03/18/23 sildenafil 100 mg tablet (Viagra) 100 mg PO DAILY PRN sexual 05/31/23 activity #30 tabs famotidine 20 mg tablet (Pepcid) 20 mg PO DAILY PRN gerd #90 06/01/23 tab-caps metoprolol succinate 50 mg 50 mg PO DAILY #90 tabs 06/01/23 tablet,extended release 24 hr cholecalciferol (vitamin D3) 625 625 mcg PO QWEEK #30 caps 06/03/23 mcg (25,000 unit) capsule losartan 50 mg tablet 50 mg PO DAILY #30 tabs 07/22/23 albuterol sulfate 90 mcg/actuation 2 puff inhalation QID PRN 08/09/23 aerosol inhaler (Ventolin HFA) shortness of breath or wheezing #8.5 grams levothyroxine 75 mcg tablet 75 mcg PO DAILY #90 tab-caps 09/08/23 amoxicillin 875 mg-potassium 1 tab PO BID 7 days #14 tabs 10/07/23 clavulanate 125 mg tablet benzonatate 100 mg capsule 100 mg PO Q4H PRN #10 caps 10/09/23 doxycycline hyclate 100 mg tablet 100 mg PO BID 7 days #14 tabs 10/09/23 prednisone 20 mg tablet 40 mg (2 x 20 mg) PO DAILY 3 days 10/09/23 #6 tabs Allergies Allergy/AdvReac Type Severity Reaction Status Date / Time oxycodone HCl (From Percocet) Allergy GI Verified 10/09/23 14:07 General Stated Complaint: GenMedical MANDY: 3 Exam Narrative Exam Narrative: 68-year-old male alert and oriented, no meningismus, no respiratory distress, rhonchi, sinus tachycardia, alert and oriented x 4, no peripheral edema, no abdominal tenderness Course Vital Signs Vital signs: Vital Signs Temperature 38.6 C H 10/09/23 13:58 Pulse 103 H 10/09/23 13:58 Respiratory Rate 12 10/09/23 13:58 Blood Pressure 164/74 H 10/09/23 13:58 Pulse Oximetry 95 10/09/23 13:58 Temperature 38.6 C H 10/09/23 13:58 Temperature Source Tympanic 10/09/23 13:58 Pulse 103 H 10/09/23 13:58 Respiratory Rate 12 10/09/23 13:58 Blood Pressure 164/74 H 10/09/23 13:58 Blood Pressure Position Sitting 10/09/23 13:58 Pulse Oximetry 95 10/09/23 13:58 Oxygen Delivery Method Room Air 10/09/23 13:58 Oxygen Flow Rate 0 10/09/23 13:58 Pain Level 0 10/09/23 13:58 Lab/Test Results Lab/Test Results: 10/09/23 14:58 Blood Blood Culture - Pending 10/09/23 14:58 Blood Blood Culture - Pending Medical Decision Making Alert and oriented 68-year-old gentleman in no acute distress, given longevity of fever, greater than 5 days Given longevity of fever, will order blood cultures and basic labs with chest x- ray. Patient may have developed a superimposed bacterial pneumonia in which case they may treat with doxycycline. Will give patient several days of prednisone to help with cough at night which is keeping him awake, will continue to use his inhalers and will order Robitussin AC as needed Chest x-ray with possible right lower lobe infiltrate, could be viral versus bacterial, will treat with doxycycline given 5 days of persistent fever with prior COVID-19 diagnosis. Diagnostic labs are reassuring aside from mild elevation in transaminases 68 and 97 and hypokalemia 3.2. Potassium was administered and patient will need to have transaminases rechecked. Placed on doxycycline, given prednisone to help with shortness of breath and cough with wheezing. Discharged home in stable condition with stable vitals, temperature improved to 37.1 and pulse to 89. Quality:SDOH Health Related Social Needs: No Data to Display PFSH All Active Problems (Updated 10/09/23 @ 16:05 by JUANITO Robin) Pneumonia (Acute) COVID-19 (Acute) Trigger finger, right ring finger (Acute) DEPO MEDROL 09/20/23 Dupuytren's contracture of right hand (Acute) Ulnar nerve entrapment (Acute) Hemangioma (Acute) Left thigh Tinea pedis of both feet (Acute) Low vitamin B12 level (Acute) Fatigue (Acute) Carpal tunnel syndrome, right (Acute) PVD (peripheral vascular disease) (Chronic) Laceration of ear (Acute) Insomnia (Acute) COVID-19 (Acute ~01/02/22) Anxiety disorder (Acute) Flushing (Acute) Blocked tear duct (Acute) Posterior right knee pain (Acute) Seborrheic keratosis (Acute) Right forearm pain (Acute) Low back pain (Acute) Lightheadedness (Acute) Erectile dysfunction (Acute) History of arthroscopy of knee (Acute) History of wheezing (Acute) Rectal hemorrhage (Acute) Status post foot surgery (Acute) Caregiver burden (Acute 12/15/13) Insomnia (Chronic) Hypothyroid (Chronic) check TSH Obesity (Chronic) continue to work on weight loss Dupuytren's contracture (Chronic) SVT (supraventricular tachycardia) (Acute) Rosacea (Acute) Peyronie disease (Acute) Neuropathic pain, arm (Acute) left arm that is improved Kidney stone (Acute 01/28/06) bilateral Essential hypertension (Acute 12/08/12) check labs continue same meds Dizziness (Acute 11/03/16) Chewing tobacco use (Acute) Chest pain (Acute) normal MPI 12/2007 normal MPI 10/14 Atopic dermatitis (Acute) Acquired hallux rigidus (Acute) Medical History Rosacea SVT (supraventricular tachycardia) Kidney stone Atopic dermatitis Neuropathic pain, arm Surgical History FOOT SURGERY Hallux rigidus of both feet with surgery in 2005 Arthroplasty of knee (~12/2010) Family History Mother , age 79 Heart disease Neoplasm LUNG Sister No problems noted. Maternal Grandfather No problems noted. Paternal Grandfather Prostate cancer Maternal Grandmother Cancer Paternal Grandmother Cancer Sister No problems noted. Sister No problems noted. Daughter No problems noted. Social History Smoking/Tobacco Use Status: Former Tobacco Use tobacco type: cigarettes and smokeless tobacco Quit Date: 03/01/87 Tobacco: How many years used: 12 Smokeless tobacco user: snuff Quit status: quit date established Second Hand Exposure: Yes Counseling given: other Smoking risk assessment performed?: Yes Alcohol Intake: current Alcohol Intake frequency: 0-2 drinks per day Alcohol type: beer Drug use: Never Substance use type: does not use Counseling given: No Counseling provided: none Caregiver/Support person: No Household members: none Housing: house Communication Needs: Corrective Lenses Do you need help understanding health information?: Rarely Pets and animals: No Do you think of yourself as: straight/heterosexual Current gender identity: male What is your relationship status?: How often do you talk on the phone with friends or family?: decline to answer How often do you get together with friends or relatives?: decline to answer How often do you attend orthodoxy or hoahaoism services?: decline to answer Do you belong to any clubs or organized social groups?: decline to answer Panel score (0-1 are the most socially isolated patients): 0 What type of physical activity do you participate in: walking Duration: < 15 minutes/day Frequency: 1-2 times per week Special alex needs: No Seatbelt use: always Helmet use: No Drive intox or ride w/intox bung driver: No Do you feel safe at home: Yes Do you feel safe in your relationship?: Yes
[2023-10-09 15:46] LABS: Abs Immature Grans 0.02 10^3/uL (0.0-0.06); Absolute Basophil Count 0.02 10^3/uL (0.0-0.2); Absolute Eosinophil Count 0.03 10^3/uL (0.0-0.7); Absolute Monocyte Count 1.06 10^3/uL (0.1-0.8); Absolute Neutrophil Count 5.06 10^3/uL (1.2-6.7); Basophils % 0.3 %; Eosinophils % 0.4 %; HCT 41.2 % (40.0-50.0); HGB 14.2 g/dL (13.5-17.5); Immature Grans % 0.3 %; Lymphocytes % 10.2 %; MCH 31.8 pg (27.0-33.0); MCHC 34.5 % (32.0-36.0); MCV 92 fL (80-95); Monocytes % 15.4 %; Neutrophils % 73.4 %; Platelet Count 219 10^3/uL (130-400); RBC 4.47 10^6/uL (4.36-5.78); RDW 12.8 % (11.8-14.1); RDW-SD 43.5 fL; WBC 6.89 10^3/uL (4.4-10.8)
[2023-10-09 15:52] VITALS: RESP 18
[2023-10-09 16:01] LABS: ALT 87 U/L (16-63); AST 68 U/L (15-37); Albumin 3.5 g/dL (3.4-5.0); Alkaline Phosphatase 169 U/L (46-116); Anion Gap 7.4 mmol/L (3-11); BUN 11 mg/dL (7-18); Bilirubin, Total 0.95 mg/dL (0.2-1.0); CO2 31.6 mmol/L (21.0-32.0); CREATININE 1.1 mg/dL (0.70-1.30); Calcium 9.2 mg/dL (8.5-10.1); Chloride 100 mmol/L (98-107); Estimated GFR 72.67 (mL/min/1.73m2); Glucose 115 mg/dL (74-106); Potassium 3.2 mmol/L (3.5-5.1); Sodium 139 mmol/L (136-145); Total Protein 7.5 g/dL (6.4-8.2)
[2023-10-09] MEDS: Potassium Chloride 20 MEQ TABCR 40 MEQ PO (16:21)
[2023-10-09 16:22] VITALS: TEMP 38.6
[2023-10-09] MEDS: Doxycycline Hyclate 100 MG, 2 CAPS/BTL PO (16:22)
== END 2023-10-09 16:24 | disposition home or self-care (01) ==
PROVIDERS: Emergency Provider Physician Assistant; PCP Family Medicine
DX: U07.1 COVID-19 (principal); J12.82 Pneumonia due to coronavirus disease 2019; R05.1 Acute cough; R50.9 Fever, unspecified; R06.02 Shortness of breath
CPT/HCPCS: 80053; 87040; 96360; 99284; 71046; 83605; 85025; 99283; J7512

== ENCOUNTER → 2023-11-18 14:00 | Outpatient (BNVA) | payer MEDICARE, OTHER, SELFPAY | PROVIDERS: PCP Family Medicine; Referring Provider Family Medicine; Visit Provider Student in an Organized Health Care Education/Training Program | DX: M65.351 Trigger finger, right little finger (principal) | CPT/HCPCS: 99213 ==

== ENCOUNTER → 2023-11-30 08:57 | Outpatient (BNVA) | payer MEDICARE, OTHER, SELFPAY | PROVIDERS: PCP Family Medicine; Referring Provider Family Medicine; Visit Provider Psychiatry & Neurology Neurology | DX: R41.4 Neurologic neglect syndrome (principal); R42 Dizziness and giddiness | CPT/HCPCS: 99215 ==

== ENCOUNTER 2023-12-03 03:09 | Outpatient (CLI) | payer MEDICARE, OTHER, SELFPAY ==
[2023-12-03 07:54] LABS: ALT 44 U/L (16-63); AST 23 U/L (15-37); Albumin 3.9 g/dL (3.4-5.0); Alkaline Phosphatase 106 U/L (46-116); Bilirubin, Total 0.72 mg/dL (0.2-1.0); Total Protein 7.1 g/dL (6.4-8.2)
[2023-12-03 08:50] LABS: Bilirubin, Direct 0.2 mg/dL (0.0-0.2)
== END 2023-12-03 03:10 | disposition home or self-care (01) ==
LOC: LBO 03:09
PROVIDERS: PCP Family Medicine; Visit Provider Family Medicine
DX: G72.89 Other specified myopathies (principal)
CPT/HCPCS: 36415; 80076

== ENCOUNTER 2023-12-29 06:14 | Day surgery (SDC) | payer MEDICARE, OTHER, SELFPAY ==
[2023-12-29 06:40] VITALS: BP 162/82; PULSE 81; RESP 20; TEMP 36.8; O2SAT 97
--- NOTE | 2023-12-29 06:56 | PDOC.DSDIS_ITS ---
Date of service: 12/29/23 Time of Service: 06:59 Discharge Plan Disposition Patient Disposition: Home Condition: Good Discharge Details Reason For Visit: Right little finger trigger finger Attending Provider: Nayan Sandoval Primary Care Provider: Alvaro Hernadez Home Meds and New Rx's Prescriptions: Continued diphenhydramine HCl [Unisom SleepGels] 50 mg capsule 100 mg PO QHS metoprolol succinate 50 mg tablet extended release 24 hr 50 mg PO DAILY Qty: 90 3RF famotidine [Pepcid] 20 mg tablet 20 mg PO DAILY PRN (Reason: gerd) Qty: 90 3RF lorazepam 0.5 mg tablet 0.5 mg PO ONCE PRN (Reason: anxiety/claustrophobia) Qty: 2 0RF Rx Instructions: Take one tablet 30min prior to MRI. Ok to take second at time of MRI if still anxious. Do not drive after taking. loratadine [Allergy Relief (loratadine)] 10 mg tablet 10 mg PO DAILY acetaminophen [Tylenol 8 Hour] 650 mg tablet extended release 1,300 mg PO Q8H PRN terbinafine HCl 250 mg tablet 250 mg PO DAILY Qty: 28 0RF Rx Instructions: take daily for one week for each of next 4 months, then start maintenance therapy losartan 50 mg tablet 50 mg PO DAILY Qty: 90 3RF aspirin [Aspir-81] 81 MG tablet,delayed release (DR/EC) 81 mg PO DAILY Qty: 90 triamcinolone acetonide 80 GM ointment 80 gm Topical BID Qty: 1 omeprazole 40 mg capsule,delayed release(DR/EC) 40 mg PO DAILY Qty: 90 3RF sildenafil [Viagra] 100 mg tablet 100 mg PO DAILY PRN (Reason: sexual activity) Qty: 30 2RF Rx Instructions: administer 30 minutes to 4 hours before activity cholecalciferol (vitamin D3) 625 mcg (25,000 unit) capsule 625 mcg PO QWEEK Qty: 30 2RF albuterol sulfate [Ventolin HFA] 90 mcg/actuation HFA aerosol inhaler 2 puff inhalation QID PRN (Reason: shortness of breath or wheezing) Qty: 8.5 1RF levothyroxine 75 mcg tablet 75 mcg PO DAILY Qty: 90 3RF Discharge Instructions Stand Alone Forms: Lori Duff Finger Release Referrals: Nayan Sandoval MD [ [facility] STAFF PHYSICIAN] - Activity:: Elevate Remove Dressings/Wound Care:: 48 hours Shower/Bathe:: 48 hours Diet:: As Tolerated Discharge Orders Discharge Orders: Discharge Order (Routine); Ordered 12/29/23 Ordered By: Dacia Timmons
[2023-12-29] MEDS: Lidocaine 1% Multi-Dose W/EPI 1/100,000 50 ML VIAL (07:26)
[2023-12-29] MEDS: Sodium Bicarbonate 50 MEQ/50 ML VIAL (07:26)
[2023-12-29 07:47] VITALS: BP 153/82; PULSE 76; RESP 20; TEMP 36.8; O2SAT 96
--- NOTE | 2023-12-29 09:03 | W.PM.OP ---
Date of service: 12/29/23 Time of Service: 07:25 Operative Note Operative Note DATE OF PROCEDURE: 12/29/23 PRE-OP DIAGNOSIS: Right Little Finger Trigger Finger POST-OP DIAGNOSIS: same PROCEDURE: Trigger Finger Release - Right Little Finger SURGEON: Nayan Sandoval ANESTHESIA TYPE: Local By Surgeon Refer to Anesthesia Record ESTIMATED BLOOD LOSS: 0 PATHOLOGY: none sent COMPLICATIONS: None Patient was transported to: same day Patient's condition: stable Indications: I have seen Fer in clinic for symptoms of a trigger finger. The catching, clicking, locking, and pain limited function. The diagnosis of trigger finger was evident. The symptoms had not responded to conservative measures. I discussed trigger finger release with the patient. I reviewed the risks of the procedure to include, but not limited to, bleeding, infection, pain, stiffness, incomplete release, damage to nerves or vessels, continued catching, recurrence. Despite these risks, the patient elected to proceed. Findings: There was a tightened A1 basilia which was released. The flexor tendons were inspected and the patient was able to move the finger without any catching, clicking, or locking. Procedure Description: Fer was greeted in the preoperative holding area where the correct side was identified and marked. The consent was reviewed with the patient and signed. All questions were answered. He was taken back to the operating room. The patient was placed into the supine position on the operating room table with the right arm on an arm board. All bony prominences were well padded. No prophylactic antibiotics were administered since this was a clean, elective hand surgical case. The right arm was then prepped with Chloraprep and draped in a standard fashion with stockinette and extremity drape. A timeout to confirm correct identity, side and site, procedure, allergies, anesthesia, and medical concerns was performed. The surgical site was marked as a longitudinal incision directly over the A1 basilia of the involved digit. This was confirmed with palpation during finger flexion. This area, overlying the metacarpal head, was then anesthetized with 1% Lidocaine. The patient tolerated this well and once the anesthetic had setup, the procedure began. A longitudinal incision was made through skin only, approximately 1cm. The deep tissues were dissected bluntly. Once the A1 basilia and flexor tendons were identified the soft tissue including neurovascular structures were retracted medially and laterally. There were no crossing structures over the A1 basilia. The proximal edge of the basilia was identified and the basilia was incised with tenotomy scissors. There was a release of the tendons once this was fully released. The tendons were then removed from the wound and inspected. Excess synovium was resected. The tendons were then returned and the patient was asked to move the finger into deep flexion and back to extension. There was no recreation of the pre-operative symptoms. The hand was then once more inspected for any A0 basilia or area of possible constriction. The wound was then irrigated and the skin was closed with a 4-0 Nylon. This was dressed with gauze and a Conform dressing. The patient tolerated the procedure well and was returned to the Same Day Surgery area in a stable condition suffering no known complication.
== END 2023-12-29 08:03 | disposition home or self-care (01) ==
PROVIDERS: PCP Family Medicine; Visit Provider Student in an Organized Health Care Education/Training Program
PROC: (CPT 26055; principal; 2023-12-29 07:30)
DX: M65.351 Trigger finger, right little finger (principal)
CPT/HCPCS: 26055; J2004

== ENCOUNTER → 2024-01-07 10:31 | Outpatient (BNVA) | payer MEDICARE, OTHER, SELFPAY | PROVIDERS: PCP Family Medicine; Referring Provider Family Medicine | DX: Z47.89 Encounter for other orthopedic aftercare (principal); M25.641 Stiffness of right hand, not elsewhere classified | CPT/HCPCS: 99024 ==

== ENCOUNTER 2024-01-22 15:06 | Emergency (ER) | payer MEDICARE, OTHER, SELFPAY ==
--- NOTE | 2024-01-22 15:00 | RT.EKG_ITS ---
APPROVED REPORT Exam: Resting ECG Reason for Exam: dizziness Patient Location: E HR:89 bpm ECG Measurements Heart Rate 89 AXIS FL 239 P 99 QRSd 93 QRS 33 QT 387 T 45 QTc 471 Conclusion Sinus rhythm 89 1 degree block no stemi
[2024-01-22 15:09] VITALS: BP 201/96; PULSE 67; RESP 18; TEMP 36.6; O2SAT 94
[2024-01-22 15:29] VITALS: RESP 18
--- NOTE | 2024-01-22 15:43 | DI.CT_ITS ---
Exam(s) CT BRAIN NECK CTA EXAM: CT BRAIN NECK CTA CLINICAL HISTORY: dizzy. TECHNIQUE: Imaging Protocol: Axial CT angiography was performed with multi-slice acquisition and mu lti-planar and/or 3D reconstructions. CONTRAST MATERIAL: Intravenous: Omnipaque 350 Contrast volume:93 mL COMPARISON: No exams were available for comparison FINDINGS: CTA Neck W: Aortic arch anatomy: The aortic arch anatomy is conventional and there is no significant stenosis at the origin of the great vessels off of the aortic arch. No intimal flap evident. Anterior circulation: Both common carotid arteries ascend with normal luminal diameters. At the level the carotid bulbs and proximal internal carotid arteries there is minimal plaque without hemodynamically significant stenosis evident. Above this level the internal carotid arteries are nicely patent in the upper neck and skull base-car otid canals Posterior circulation: Both vertebral arteries originate in conventional fashion off of the subclavian arteries and there is no obvious stenosis at the origin of the vertebral arteries. Both vertebral arteries exhibit normal luminal diameters within the foramen transversarium. There is calcified plaque in both vertebral arteries at the skull base. There does not appear to be a tight stenosis at these levels. Both vertebral arteries contribute to the formation of the basilar artery at the skull base. CTA Brain W: Anterior circulation: Both internal carotid arteries are patent in the skull base-carotid canals as well as within the cave rnous sinuses. These vessels are peripherally calcified within the cavernous sinuses but without cri tical stenosis. The supraclinoid aspects of the ICAs are patent. Both A1 segments are patent as are the anterior cer ebral arteries and there is no evidence of aneurysm at the level of the anterior communicating artery . Both middle cerebral arteries are patent with no evidence of significant stenosis nor intraluminal th rombus. There also no aneurysms of these vessels. Posterior circulation: The basilar artery ascends in the midline. No significant stenosis evident in this vessel. Distally it gives off patent bilateral superior cerebellar arteries. Above this level the basilar artery terminates as patent bilateral posterior cerebral arteries. There is no evidence of aneurysm at the tip of the basilar artery nor elsewhere in the [id number] is. CT BRAIN: There is no evidence of intracranial hemorrhage, mass effect, or shift of midline structures. There are no extra-axial fluid collections. Ventricles are not enlarged or shifted. There are foci of whi te matter hypodensity in the Kaitlynn ventricular white matter. No abnormal enhancement evident at these levels. Probably related to chronic small vessel disease. There are no ring enhancing lesions in t he brain and no abnormal meningeal enhancement. IMPRESSION: 1. Patent carotid arteries in the neck. Mild plaque bilaterally but no hemodynamically significant s tenosis evident. 2. Patent vertebral arteries. Some calcified circumferential plaque evident in both vertebral arteri es at the skull base but no tight stenosis at these levels. 3. Patent intracranial arteries. No aneurysms. No ring enhancing lesions in the brain. 4. Bilateral periventricular white matter findings consistent with chronic small vessel disease. Report called by myself to ER physician 01/22/2024 4:20 p.m. RADIATION DOSE DELIVERED: 2,502.36mGy.cm Total DLP DATA REPOSITORY: All CT scans at this facility are submitted to the National Radiology Data Registry (NRDR) Dose Index Registry (DIR) with the [employer] ([employer]). RADIATION OPTIMIZATION: All CT scans at this facility use at least one of these dose optimization te chniques: automated exposure control; mA and/or kV adjustment per patient size (includes targeted exa ms where dose is matched to clinical indication); or iterative reconstruction.
[2024-01-22 15:49] LABS: Abs Immature Grans 0.03 10^3/uL (0.0-0.06); Absolute Basophil Count 0.04 10^3/uL (0.0-0.2); Absolute Lymphocyte Count 1.27 10^3/uL (1.2-3.4); Absolute Neutrophil Count 5.18 10^3/uL (1.2-6.7); Basophils % 0.6 %; Eosinophils % 1.4 %; HCT 44.2 % (40.0-50.0); HGB 15.1 g/dL (13.5-17.5); Immature Grans % 0.4 %; Lymphocytes % 17.6 %; MCH 31.4 pg (27.0-33.0); MCHC 34.2 % (32.0-36.0); MCV 92 fL (80-95); MPV 10.1 fL (8.0-11.0); Monocytes % 8.3 %; Neutrophils % 71.7 %; Platelet Count 213 10^3/uL (130-400); RBC 4.81 10^6/uL (4.36-5.78); RDW 14.3 % (11.8-14.1); RDW-SD 48.3 fL; WBC 7.22 10^3/uL (4.4-10.8)
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
[2024-01-22 15:59] LABS: BUN 17 mg/dL (7-18); CREATININE 1.2 mg/dL (0.70-1.30); Chloride 107 mmol/L (98-107); Estimated GFR 65.46 (mL/min/1.73m2); Glucose 145 mg/dL (74-106); Potassium 3.8 mmol/L (3.5-5.1); Sodium 145 mmol/L (136-145)
[2024-01-22] MEDS: Normal Saline - Diluent 50 ML VIAL IJ (16:08)
[2024-01-22] MEDS: Omnipaque 350 MG/ML 100 ML BTL IJ (16:09)
[2024-01-22] MEDS: Meclizine 25 MG TAB PO (16:13)
[2024-01-22] MEDS: Ondansetron 4 MG/2 ML VIAL IVP (16:13)
[2024-01-22 16:22] VITALS: BP 179/89; PULSE 87; RESP 18; O2SAT 94
[2024-01-22] MEDS: Meclizine 25 MG TAB 75 MG PO (16:55)
== END 2024-01-22 17:02 | disposition home or self-care (01) ==
PROVIDERS: Emergency Provider Emergency Medicine; PCP Family Medicine
DX: R42 Dizziness and giddiness (principal); I10 Essential (primary) hypertension; I73.9 Peripheral vascular disease, unspecified; Z87.891 Personal history of nicotine dependence
CPT/HCPCS: 36415; 70496; 70498; 80048; 93005; 96374; 99285; 85025; 93010; 99284; J2405; J3490

== ENCOUNTER 2024-03-23 20:50 | Emergency (ER) | payer OTHER, SELFPAY ==
[2024-03-23 20:57] VITALS: BP 196/98; PULSE 89; RESP 16; TEMP 36.8; O2SAT 96
--- NOTE | 2024-03-23 21:16 | W.ED.GENAD ---
Discharge Plan Disposition Patient Disposition: Home Condition: Stable Discharge Details Clinical Impression: Cat bite of left hand Primary Care Provider: Alvaro Hernadez ED Provider: Bj Orr Home Meds and New Rx's Prescriptions: New amoxicillin-pot clavulanate 875-125 mg tablet 1 tab PO BID 10 Days Qty: 20 0RF Continued diphenhydramine HCl [Unisom SleepGels] 50 mg capsule 100 mg PO QHS famotidine [Pepcid] 20 mg tablet 20 mg PO DAILY PRN (Reason: gerd) Qty: 90 3RF loratadine [Allergy Relief (loratadine)] 10 mg tablet 10 mg PO DAILY acetaminophen [Tylenol 8 Hour] 650 mg tablet extended release 1,300 mg PO Q8H PRN losartan 50 mg tablet 50 mg PO DAILY Qty: 90 3RF aspirin [Aspir-81] 81 MG tablet,delayed release (DR/EC) 81 mg PO DAILY Qty: 90 triamcinolone acetonide 80 GM ointment 80 gm Topical BID Qty: 1 omeprazole 40 mg capsule,delayed release(DR/EC) 40 mg PO DAILY Qty: 90 3RF sildenafil [Viagra] 100 mg tablet 100 mg PO DAILY PRN (Reason: sexual activity) Qty: 30 2RF Rx Instructions: administer 30 minutes to 4 hours before activity cholecalciferol (vitamin D3) 625 mcg (25,000 unit) capsule 625 mcg PO QWEEK Qty: 30 2RF albuterol sulfate [Ventolin HFA] 90 mcg/actuation HFA aerosol inhaler 2 puff inhalation QID PRN (Reason: shortness of breath or wheezing) Qty: 8.5 1RF levothyroxine 75 mcg tablet 75 mcg PO DAILY Qty: 90 3RF sertraline 50 mg tablet 50 mg PO DAILY Qty: 90 3RF metoprolol succinate 50 mg tablet extended release 24 hr 50 mg PO DAILY Qty: 90 3RF meclizine 25 mg tablet 25 mg PO QID PRN (Reason: motion sickness) Qty: 10 0RF ondansetron 4 mg tablet,disintegrating 4 mg PO Q8H PRN (Reason: nausea and vomiting) Qty: 10 0RF Discharge Instructions Instructions: Amoxicillin and Clavulanate, Tdap vaccine, Animal Bites ED Additional Instructions: You were seen in the emergency department for the cat bite of your left hand, please keep the area clean over the next few days with aggressive scrubbing and washing. I have started you on an antibiotic called Augmentin and updated your tetanus. Please watch closely for any increasing redness, red streaking up the arm, fever, significant swelling of the hand, forced involuntary flexion of the fingers. Return for any of these symptoms. Please confirm with your client that her cat has had its rabies series at some point - it is completely indoor cat has a low risk for any rabies acquisition. Referrals: Alvaro Hernadez MD [Primary Care Provider] - HPI General Date/Time Provider Initiated Documentation: 03/23/24 21:16. 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 Quality described as minor pain only, no radiation to redness, swelling, FB sensation, wound is very superficial to L thenar area, patient R-hand dominant. Severity is described as mild. Palliating factors include nothing specific attempted. Provoking factors include nothing specific. Events leading up to the incident/Associated Symptoms: Patient unsure of last Tdap, cat is unknown vaccination status, but he can check on that, and cat does not go outside. Patient not anticoagulated. Related Data Home Medications ?Medication ?Instructions ?Recorded ?Confirmed aspirin 81 mg tablet,delayed 81 mg PO DAILY #90 tab-caps 11/06/15 03/23/24 release (Aspir-) triamcinolone acetonide 0.025 % 80 gm topical BID ##1 03/25/16 03/23/24 topical ointment omeprazole 40 mg capsule,delayed 40 mg PO DAILY #90 caps 10/17/19 03/23/24 release loratadine 10 mg tablet (Allergy 10 mg PO DAILY 02/25/21 03/23/24 Relief (loratadine)) acetaminophen 650 mg 1,300 mg PO Q8H PRN 03/18/23 03/23/24 tablet,extended release (Tylenol 8 Hour) sildenafil 100 mg tablet (Viagra) 100 mg PO DAILY PRN sexual 05/31/23 03/23/24 activity #30 tabs diphenhydramine HCl 50 mg capsule 100 mg PO QHS 06/01/23 03/23/24 (Unisom SleepGels) famotidine 20 mg tablet (Pepcid) 20 mg PO DAILY PRN gerd #90 06/01/23 03/23/24 tab-caps cholecalciferol (vitamin D3) 625 625 mcg PO QWEEK #30 caps 06/03/23 03/23/24 mcg (25,000 unit) capsule albuterol sulfate 90 mcg/actuation 2 puff inhalation QID PRN 08/09/23 03/23/24 aerosol inhaler (Ventolin HFA) shortness of breath or wheezing #8.5 grams levothyroxine 75 mcg tablet 75 mcg PO DAILY #90 tab-caps 09/08/23 03/23/24 losartan 50 mg tablet 50 mg PO DAILY #90 tabs 10/12/23 03/23/24 sertraline 50 mg tablet 50 mg PO DAILY #90 tabs 01/17/24 03/23/24 meclizine 25 mg tablet 25 mg PO QID PRN motion sickness 01/22/24 03/23/24 #10 tabs ondansetron 4 mg disintegrating 4 mg PO Q8H PRN nausea and 01/22/24 03/23/24 tablet vomiting #10 tabs metoprolol succinate 50 mg 50 mg PO DAILY #90 tabs 03/20/24 03/23/24 tablet,extended release 24 hr amoxicillin 875 mg-potassium 1 tab PO BID cat bite 10 days #20 03/23/24 clavulanate 125 mg tablet tabs Previous Rx's ?Medication ?Instructions ?Recorded omeprazole 40 mg capsule,delayed 40 mg PO DAILY #90 caps 10/17/19 release sildenafil 100 mg tablet (Viagra) 100 mg PO DAILY PRN sexual 05/31/23 activity #30 tabs famotidine 20 mg tablet (Pepcid) 20 mg PO DAILY PRN gerd #90 06/01/23 tab-caps cholecalciferol (vitamin D3) 625 625 mcg PO QWEEK #30 caps 06/03/23 mcg (25,000 unit) capsule albuterol sulfate 90 mcg/actuation 2 puff inhalation QID PRN 08/09/23 aerosol inhaler (Ventolin HFA) shortness of breath or wheezing #8.5 grams levothyroxine 75 mcg tablet 75 mcg PO DAILY #90 tab-caps 09/08/23 losartan 50 mg tablet 50 mg PO DAILY #90 tabs 10/12/23 sertraline 50 mg tablet 50 mg PO DAILY #90 tabs 01/17/24 meclizine 25 mg tablet 25 mg PO QID PRN motion sickness 01/22/24 #10 tabs ondansetron 4 mg disintegrating 4 mg PO Q8H PRN nausea and 01/22/24 tablet vomiting #10 tabs metoprolol succinate 50 mg 50 mg PO DAILY #90 tabs 03/20/24 tablet,extended release 24 hr amoxicillin 875 mg-potassium 1 tab PO BID cat bite 10 days #20 03/23/24 clavulanate 125 mg tablet tabs Allergies Allergy/AdvReac Type Severity Reaction Status Date / Time oxycodone HCl (From Percocet) AdvReac GI Verified 03/23/24 20:55 General Stated Complaint: AnimalBite MANDY: 4 Review of Systems All systems reviewed & are unremarkable except as noted in HPI and below Exam Narrative Exam Narrative: GENERAL APPEARANCE: Well-nourished, non-toxic, awake and alert, atraumatic, no acute distress. SKIN: Warm, pink, dry, superficial bite marshall to left thenar eminence both dorsal and volar pinpoint wounds, no lymphadenitis, left radial pulse 2+, sensation intact, range of motion intact in fingers HEAD: Normocephalic, atraumatic, normal hair distribution for gender/age. EYES: Normal conjunctiva, no exudates on lids/lashes. ENT: Nares patent, no circumoral cyanosis, no facial swelling NECK: Supple, trachea midline, painless cervical ROM. LUNGS/CHEST: Non-labored respirations, normal A/P diameter, symmetrical expansion, no chest wall deformity HEART (CV/PV): Regular rate, no peripheral edema, no JVD. ABDOMEN: Soft, non-distended, no guarding. MSK: Normal ROM, no swelling/deformity to bilateral UEs or LEs, moving all extremities without weakness, no cyanosis, spine midline without tenderness, normal curvature. NEURO: Mental Status AAOx4 - alert to person, place, time, events No facial droop, no forehead involvement. Motor: No focal weakness - strength 5/5 in bilateral UEs and LEs, proximal and distal, symmetric. Sensory: sensation intact to light touch globally. Gait normal: patient ambulated without ataxia into ED room. PSYCH: euthymic, cooperative, pleasant, appropriate speech Course Vital Signs Vital signs: Vital Signs Temperature 36.8 C 03/23/24 20:57 Pulse 89 03/23/24 20:57 Respiratory Rate 16 03/23/24 20:57 Blood Pressure 196/98 H 03/23/24 20:57 Pulse Oximetry 96 03/23/24 20:57 Temperature 36.8 C 03/23/24 20:57 Temperature Source Tympanic 03/23/24 20:57 Pulse 89 03/23/24 20:57 Respiratory Rate 16 03/23/24 20:57 Blood Pressure 196/98 H 03/23/24 20:57 Blood Pressure Position Sitting 03/23/24 20:57 Pulse Oximetry 96 03/23/24 20:57 Oxygen Delivery Method Room Air 03/23/24 20:57 Oxygen Flow Rate 0 03/23/24 20:57 Pain Level 3 03/23/24 20:57 Medical Decision Making This dictation utilizes [id number] dictation software and may contain unedited grammatical errors. 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 Quality described as minor pain only, no radiation to redness, swelling, FB sensation, wound is very superficial to L thenar area, patient R-hand dominant. Severity is described as mild. Palliating factors include nothing specific attempted. Provoking factors include nothing specific. Events leading up to the incident/Associated Symptoms: Patient unsure of last Tdap, cat is unknown vaccination status, but he can check on that, and cat does not go outside. Patients' medical history: Noncontributory, not immune suppressed. Family and social history: Noncontributory. Pertinent exam findings / vital signs include superficial bite marshall to left thenar eminence both dorsal and volar pinpoint wounds, no lymphadenitis, left radial pulse 2+, sensation intact, range of motion intact in fingers. Differential / pathologies of concern include cat bite. Diagnostic studies of: -None. Interventions of: -Updated Tdap, started on Augmentin with 1 dose given here and Rx sent. Counseled on following up with his client to confirm cat's rabies vaccination status but low risk exposure as the cat does not go outside. ED Course/Assessment/Plan: 68-year-old male presents with superficial cat bite to the left thenar eminence just prior to arrival, started on Augmentin, counseled on return criteria for any worsening signs of infection despite treatment, updated tetanus, counseled on severity of need for confirmation of rabies vaccination status of the animal. Findings not consistent with abscess, tenosynovitis at this time. Disposition of cat bite of left hand. Patient verbalized understanding of the plan and return to ED criteria and engaged in shared decision making. Medical Records Medical records reviewed: Yes I reviewed the patient's medical records. Quality:SDOH Health Related Social Needs: No Data to Display PFSH All Active Problems (Updated 03/23/24 @ 21:26 by JUANITO Lowry) Cat bite of left hand (Acute) Visual disturbance (Acute) Mass of eye, left (Acute) Vertigo (Acute) Braulio-neglect of left side (Acute) Skin lesion (Acute) Skin rash (Acute) COVID-19 (Acute) Dupuytren's contracture of right hand (Acute) Ulnar nerve entrapment (Acute) Hemangioma (Acute) Left thigh Tinea pedis of both feet (Acute) Low vitamin B12 level (Acute) Fatigue (Acute) Carpal tunnel syndrome, right (Acute) PVD (peripheral vascular disease) (Chronic) Laceration of ear (Acute) Insomnia (Acute) COVID-19 (Acute ~01/02/22) Anxiety disorder (Acute) Flushing (Acute) Blocked tear duct (Acute) Posterior right knee pain (Acute) Seborrheic keratosis (Acute) Right forearm pain (Acute) Low back pain (Acute) Lightheadedness (Acute) Erectile dysfunction (Acute) History of arthroscopy of knee (Acute) History of wheezing (Acute) Rectal hemorrhage (Acute) Status post foot surgery (Acute) Caregiver burden (Acute 12/15/13) Insomnia (Chronic) Hypothyroid (Chronic) check TSH Obesity (Chronic) continue to work on weight loss Dupuytren's contracture (Chronic) SVT (supraventricular tachycardia) (Acute) Rosacea (Acute) Peyronie disease (Acute) Neuropathic pain, arm (Acute) left arm that is improved Kidney stone (Acute 01/28/06) bilateral Essential hypertension (Acute 12/08/12) check labs continue same meds Dizziness (Acute 11/03/16) Chewing tobacco use (Acute) Chest pain (Acute) normal MPI 12/2007 normal MPI 10/14 Atopic dermatitis (Acute) Acquired hallux rigidus (Acute) Medical History Rosacea SVT (supraventricular tachycardia) Kidney stone Atopic dermatitis Neuropathic pain, arm Surgical History Trigger finger, right little finger s/p right little finger release DOS: 12/29/23 Hx of colonoscopy FOOT SURGERY Hallux rigidus of both feet with surgery in 2005 Arthroplasty of knee (~12/2010) pt. reports this was a scope Family History Mother , age 79 Heart disease Neoplasm LUNG Sister No problems noted. Maternal Grandfather No problems noted. Paternal Grandfather Prostate cancer Maternal Grandmother Cancer Paternal Grandmother Cancer Sister No problems noted. Sister No problems noted. Daughter No problems noted. Social History Smoking/Tobacco Use Status: Former Tobacco Use tobacco type: cigarettes and smokeless tobacco Quit Date: 03/01/87 Tobacco: How many years used: 12 Smokeless tobacco user: snuff Quit status: quit date established Second Hand Exposure: Yes Counseling given: other Smoking risk assessment performed?: Yes Alcohol Intake: current Alcohol Intake frequency: 0-2 drinks per day Alcohol type: beer Drug use: Never Substance use type: does not use Counseling given: No Counseling provided: none Details: alcohol: t-1, couple beers Caregiver/Support person: No Household members: none Housing: house Communication Needs: Corrective Lenses Do you need help understanding health information?: Rarely Pets and animals: No Do you think of yourself as: straight/heterosexual Current gender identity: male What is your relationship status?: How often do you talk on the phone with friends or family?: decline to answer How often do you get together with friends or relatives?: decline to answer How often do you attend nondenominational or quaker services?: decline to answer Do you belong to any clubs or organized social groups?: decline to answer Panel score (0-1 are the most socially isolated patients): 0 What type of physical activity do you participate in: walking Duration: < 15 minutes/day Frequency: 1-2 times per week Special alex needs: No Seatbelt use: always Helmet use: No 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
[2024-03-23] MEDS: Amoxicillin 875/Clav. 125 TAB PO (21:41)
[2024-03-23] MEDS: Diph,Pertuss(Acell),Tet Vac/Pf 0.5 ML SYR IM (21:41)
== END 2024-03-23 21:45 | disposition home or self-care (01) ==
PROVIDERS: Emergency Provider Physician Assistant; PCP Family Medicine
DX: S61.452A Open bite of left hand, initial encounter (principal); Z23 Encounter for immunization; Z87.891 Personal history of nicotine dependence; W55.01XA Bitten by cat, initial encounter; Y93.89 Activity, other specified; Y92.018 Other place in single-family (private) house as the place of occurrence of the external cause
CPT/HCPCS: 90715; 99284; 99283

== ENCOUNTER → 2024-06-01 09:16 | Outpatient (BNVA) | payer MEDICARE, OTHER, SELFPAY | PROVIDERS: PCP Family Medicine; Visit Provider Psychiatry & Neurology Neurology | DX: R41.4 Neurologic neglect syndrome (principal); R42 Dizziness and giddiness | CPT/HCPCS: 99213 ==

== ENCOUNTER 2024-06-23 00:47 | Outpatient (CLI) | payer MEDICARE, OTHER, SELFPAY ==
[2024-06-23 12:50] LABS: Hemoglobin A1C 5.3 % (<5.7)
[2024-06-23 13:19] LABS: ALT 48 U/L (16-63); AST 28 U/L (15-37); Alkaline Phosphatase 114 U/L (46-116); Bilirubin, Total 0.9 mg/dL (0.2-1.0); TSH (W/Ref FT4) 2.69 uIU/mL (0.36-3.74); Total Protein 6.8 g/dL (6.4-8.2); Vitamin B12 652 pg/mL (193-986); Vitamin D 25 Total 27 ng/mL (30-100)
[2024-06-23 13:53] LABS: Bilirubin, Direct 0.2 mg/dL (0.0-0.2)
== END 2024-06-23 00:48 | disposition home or self-care (01) ==
LOC: LOS 00:48
PROVIDERS: PCP Family Medicine; Visit Provider Family Medicine
DX: G72.89 Other specified myopathies (principal); E03.9 Hypothyroidism, unspecified; R73.9 Hyperglycemia, unspecified; D64.9 Anemia, unspecified; E55.9 Vitamin D deficiency, unspecified; G40.909 Epilepsy, unspecified, not intractable, without status epilepticus
CPT/HCPCS: 36415; 80076; 82306; 82607; 83036; 84443

== ENCOUNTER 2024-09-18 04:56 | Emergency (ER) | payer MEDICARE, OTHER, SELFPAY ==
[2024-09-18] VITALS (160 sets, daily range): BP systolic 103–241; BP diastolic 36–116; PULSE 65–100; RESP 8–30; TEMP 36.7–37.2; O2SAT 89–100
--- NOTE | 2024-09-18 04:45 | RT.EKG_ITS ---
APPROVED REPORT Exam: Resting ECG Reason for Exam: SOB Patient Location: E HR:103 bpm ECG Measurements Heart Rate 103 AXIS LA 178 P 119 QRSd 94 QRS 28 QT 361 T 54 QTc 472 Conclusion Sinus tachycardia...rate> 99 Nonspecific T abnormalities, lateral leads...T <-0.10mV, I aVL V5 V6 Physician: no stemi
--- NOTE | 2024-09-18 05:00 | DI.RAD_ITS ---
Exam(s) XR PORTABLE CHEST AP EXAM: XR PORTABLE CHEST AP CLINICAL HISTORY: SOB TECHNIQUE: 2D digital imaging was performed. COMPARISON: CR XR CHEST 2V PA LATERAL from 10/09/2023 FINDINGS: LUNGS: No focal infiltrate. Mildly increased interstitial markings likely represent mild CHF. No pleural abnormality seen. HEART: Enlarged. Pulmonary vessels are mildly prominent. AORTA: Normal diameter. BONES: Unremarkable for age. Soft tissues: Unremarkable. IMPRESSION: Mild CHF. The preliminary [facility] report was reviewed. DATA REPOSITORY: RADIATION DOSE DELIVERED:
[2024-09-18 05:19] LABS: Abs Immature Grans 0.01 10^3/uL (0.0-0.06); HCT 41.9 % (40.0-50.0); HGB 14.2 g/dL (13.5-17.5); Immature Grans % 0.2 %; MCH 31.2 pg (27.0-33.0); MCHC 33.9 % (32.0-36.0); MCV 92 fL (80-95); MPV 10.1 fL (8.0-11.0); Platelet Count 182 10^3/uL (130-400); RBC 4.55 10^6/uL (4.36-5.78); RDW 13.3 % (11.8-14.1); RDW-SD 44.9 fL; WBC 5.63 10^3/uL (4.4-10.8)
[2024-09-18] MEDS: Furosemide 20 MG/2 ML VIAL IVP (05:21)
[2024-09-18] MEDS: nitroGLYcerin in D5W 50 MG/250 ML BTL 30 MG IV (05:21)
--- NOTE | 2024-09-18 05:34 | W.ED.GENAD ---
Discharge Plan Discharge Details Chief Complaint: RespSymp Clinical Impression: Flash pulmonary edema, Hypertensive emergency Primary Care Provider: Alvaro Hernadez ED Provider: Bj Griggs Home Meds and New Rx's Prescriptions: No Action diphenhydramine HCl [Unisom SleepGels] 50 mg capsule 100 mg PO QHS loratadine [Allergy Relief (loratadine)] 10 mg tablet 10 mg PO DAILY acetaminophen [Tylenol 8 Hour] 650 mg tablet extended release 1,300 mg PO Q8H PRN losartan 50 mg tablet 50 mg PO DAILY Qty: 90 3RF aspirin [Aspir-81] 81 MG tablet,delayed release (DR/EC) 81 mg PO DAILY Qty: 90 triamcinolone acetonide 80 GM ointment 80 gm Topical BID Qty: 1 omeprazole 40 mg capsule,delayed release(DR/EC) 40 mg PO DAILY Qty: 90 3RF sildenafil [Viagra] 100 mg tablet 100 mg PO DAILY PRN (Reason: sexual activity) Qty: 30 2RF Rx Instructions: administer 30 minutes to 4 hours before activity cholecalciferol (vitamin D3) 625 mcg (25,000 unit) capsule 625 mcg PO QWEEK Qty: 30 2RF levothyroxine 75 mcg tablet 75 mcg PO DAILY Qty: 90 3RF metoprolol succinate 50 mg tablet extended release 24 hr 50 mg PO DAILY Qty: 90 3RF (DME) Aerochamber MV Spacer See Rx Instructions .ROUTE .MEDSUPPLY Qty: 1 0RF Rx Instructions: As directed albuterol sulfate [Ventolin HFA] 90 mcg/actuation HFA aerosol inhaler 2 puff inhalation QID PRN (Reason: shortness of breath or wheezing) Qty: 8.5 13RF atorvastatin 10 mg tablet 10 mg PO DAILY Qty: 90 3RF famotidine [Pepcid] 20 mg tablet 20 mg PO DAILY PRN (Reason: gerd) Qty: 90 3RF meclizine 25 mg tablet 25 mg PO QID PRN (Reason: motion sickness) Qty: 10 0RF HPI General Date/Time Provider Initiated Documentation: 09/18/24 04:58. HPI Narrative: This is a 69-year-old male with a past medical history of hypertension, high cholesterol, hypothyroidism, who presents today for evaluation of shortness of breath. Patient states that at 2:30 AM he noticed some mild shortness of breath. He denies any associated chest pain, pleuritic chest pain, chest pressure, or bandlike sensation. He did notice that his blood pressure was elevated. He came to the ER for further assessment. He denies any cough or fever. He denies any recent long trips surgeries or procedures. No history of heart attack, but he does have a strong family history of congestive heart failure. He does admit to some mild edema of his lower extremities bilaterally for the last few weeks. He did miss his medications on Wednesday, but took all of his medications on Wednesday. He states that he otherwise regularly takes his medications. No other complaints at this time. No other modifying factors. No exertional chest discomfort. Related Data Home Medications ?Medication ?Instructions ?Recorded ?Confirmed aspirin 81 mg tablet,delayed 81 mg PO DAILY #90 tab-caps 11/06/15 09/18/24 release (Aspir-) triamcinolone acetonide 0.025 % 80 gm topical BID ##1 03/25/16 09/18/24 topical ointment omeprazole 40 mg capsule,delayed 40 mg PO DAILY #90 caps 10/17/19 09/18/24 release loratadine 10 mg tablet (Allergy 10 mg PO DAILY 02/25/21 09/18/24 Relief (loratadine)) acetaminophen 650 mg 1,300 mg PO Q8H PRN 03/18/23 09/18/24 tablet,extended release (Tylenol 8 Hour) sildenafil 100 mg tablet (Viagra) 100 mg PO DAILY PRN sexual 05/31/23 09/18/24 activity #30 tabs diphenhydramine HCl 50 mg capsule 100 mg PO QHS 06/01/23 09/18/24 (Unisom SleepGels) cholecalciferol (vitamin D3) 625 625 mcg PO QWEEK #30 caps 06/03/23 09/18/24 mcg (25,000 unit) capsule levothyroxine 75 mcg tablet 75 mcg PO DAILY #90 tab-caps 09/08/23 09/18/24 losartan 50 mg tablet 50 mg PO DAILY #90 tabs 10/12/23 09/18/24 meclizine 25 mg tablet 25 mg PO QID PRN motion sickness 01/22/24 09/18/24 #10 tabs metoprolol succinate 50 mg 50 mg PO DAILY #90 tabs 03/20/24 09/18/24 tablet,extended release 24 hr inhalational spacing device #1 ea 05/16/24 09/18/24 (Aerochamber MV spacer) albuterol sulfate 90 mcg/actuation 2 puff inhalation QID PRN 06/19/24 09/18/24 aerosol inhaler (Ventolin HFA) shortness of breath or wheezing #8.5 grams atorvastatin 10 mg tablet 10 mg PO DAILY #90 tabs 07/01/24 09/18/24 famotidine 20 mg tablet (Pepcid) 20 mg PO DAILY PRN gerd #90 08/03/24 09/18/24 tab-caps Previous Rx's ?Medication ?Instructions ?Recorded omeprazole 40 mg capsule,delayed 40 mg PO DAILY #90 caps 10/17/19 release sildenafil 100 mg tablet (Viagra) 100 mg PO DAILY PRN sexual 05/31/23 activity #30 tabs cholecalciferol (vitamin D3) 625 625 mcg PO QWEEK #30 caps 06/03/23 mcg (25,000 unit) capsule levothyroxine 75 mcg tablet 75 mcg PO DAILY #90 tab-caps 09/08/23 losartan 50 mg tablet 50 mg PO DAILY #90 tabs 10/12/23 meclizine 25 mg tablet 25 mg PO QID PRN motion sickness 01/22/24 #10 tabs metoprolol succinate 50 mg 50 mg PO DAILY #90 tabs 03/20/24 tablet,extended release 24 hr inhalational spacing device #1 ea 05/16/24 (Aerochamber MV spacer) albuterol sulfate 90 mcg/actuation 2 puff inhalation QID PRN 06/19/24 aerosol inhaler (Ventolin HFA) shortness of breath or wheezing #8.5 grams atorvastatin 10 mg tablet 10 mg PO DAILY #90 tabs 07/01/24 famotidine 20 mg tablet (Pepcid) 20 mg PO DAILY PRN gerd #90 08/03/24 tab-caps Allergies Allergy/AdvReac Type Severity Reaction Status Date / Time oxycodone HCl (From Percocet) AdvReac GI Verified 09/18/24 05:07 General Stated Complaint: RespSymp MANDY: 3 Exam Narrative Exam Narrative: 1.Const: Well-nourished, Well-developed, appearing stated age 2.Eyes: PERRL, no conjunctival injection, and symmetrical lids. 3.ENT: Atraumatic external nose and ears. Moist MM. Neck: Symmetric, trachea midline, No thyromegaly. 4.CVS: +S1/S2, Peripheral pulses 2+ and equal in all extremities. Brisk capillary refill in all extremities. 5.RESP: Unlabored respiratory effort. Mild crackles in the right lower lung field. No wheezes or rhonchi. 6.GI: Soft, Nontender/Nondistended, No hepatosplenomegaly. No guarding or rebound. 7.MSK: Normocephalic/Atraumatic, Extremities w/o deformity or ttp No cyanosis or clubbing, Normal movement of all extremities. +1 pitting edema bilaterally. No calf tenderness. 8.Skin: Warm, Dry. No rashes or lesions. 9.Neuro: riveter portable machine II-XII grossly intact. Sensation grossly intact, no focal neurologic deficits. 10.Psych: (AAO) x3. Appropriate mood and affect Course Vital Signs Vital signs: Vital Signs Temperature 37.2 C 09/18/24 04:59 Pulse 100 H 09/18/24 04:59 Respiratory Rate 16 09/18/24 04:59 Blood Pressure 241/116 H 09/18/24 04:59 Pulse Oximetry 94 09/18/24 04:59 Temperature 37.2 C 09/18/24 04:59 Temperature Source Tympanic 09/18/24 04:59 Pulse 100 H 09/18/24 04:59 Respiratory Rate 16 09/18/24 04:59 Respiratory Effort Normal, Non-Labored 09/18/24 05:11 Respiratory Depth Normal 09/18/24 05:11 Blood Pressure 241/116 H 09/18/24 04:59 Pulse Oximetry 94 09/18/24 04:59 Oxygen Delivery Method Room Air 09/18/24 04:59 Oxygen Flow Rate 0 09/18/24 04:59 Lab/Test Results Lab/Test Results: Laboratory Tests Range/Units 09/18/24 05:05 WBC (4.4-10.8) 10^3/uL 5.63 RBC (4.36-5.78) 10^6/uL 4.55 Hgb (13.5-17.5) g/dL 14.2 Hct (40.0-50.0) % 41.9 MCV (80-95) fL 92 MCH (27.0-33.0) pg 31.2 MCHC (32.0-36.0) % 33.9 RDW (11.8-14.1) % 13.3 Plt Count (130-400) 10^3/uL 182 MPV (8.0-11.0) fL 10.1 Immature Gran % % 0.2 Neutrophils % % 60.0 Lymphocytes % % 23.6 Monocytes % % 12.1 Eosinophils % % 3.4 Basophils % % 0.7 Nucleated RBC % (0.0-0.3) % 0.0 Absolute Neutrophils (1.2-6.7) 10^3/uL 3.38 Absolute Lymphocytes (1.2-3.4) 10^3/uL 1.33 Absolute Monocytes (0.1-0.8) 10^3/uL 0.68 Absolute Eosinophils (0.0-0.7) 10^3/uL 0.19 Absolute Basophils (0.0-0.2) 10^3/uL 0.04 Medical Decision Making This is a 69-year-old male with a past medical history of hypertension, high cholesterol, hypothyroidism, who presents today for evaluation of shortness of breath. Patient states that at 2:30 AM he noticed some mild shortness of breath. He denies any associated chest pain, pleuritic chest pain, chest pressure, or bandlike sensation. He did notice that his blood pressure was elevated. He came to the ER for further assessment. He denies any cough or fever. He denies any recent long trips surgeries or procedures. No history of heart attack, but he does have a strong family history of congestive heart failure. He does admit to some mild edema of his lower extremities bilaterally for the last few weeks. He did miss his medications on Wednesday, but took all of his medications on Wednesday. He states that he otherwise regularly takes his medications. No other complaints at this time. No other modifying factors. No exertional chest discomfort. Exam demonstrates mild crackles in the right lower lung field. Mild +1 pitting edema bilaterally. No calf tenderness. No chest pain to suggest ACS, no pleuritic chest pain to suggest PE. Patient is notably hypertensive at 241/116. Suspect congestive heart failure with potential flash pulmonary edema. We will start nitro drip, give 20 mg of IV Lasix, evaluate for cardiac etiology, monitor closely and reassess. 8:09 AM Patient feels much better. He has diuresed over 1.3 L. Shortness of breath has resolved. Pitting edema has improved. Blood pressure normalized on nitro drip. We will get morning medications, titrate off nitro drip, reassess. Will attempt to get outpatient echo. Patient will be signed out to my colleague Dr. Barraza for third troponin, and echo. Critical Care Time Critical Care Time Critical Care Time: Yes Total Critical Care Time: 45 Attestation: Upon my evaluation, this patient had a high probability of imminent or life-threatening deterioration, which required my direct attention, intervention, and personal management. I have personally provided 45 minutes of critical care time exclusive of time spent on separately billable procedures. Time includes review of laboratory data, radiology results, discussion with consultants, and monitoring for potential decompensation. Interventions were performed as documented. [facility] All Active Problems (Updated 09/18/24 @ 08:10 by Bj Griggs DO) Hypertensive emergency (Acute) Flash pulmonary edema (Acute) Hyperlipemia (Acute) Post-nasal drip (Acute) Visual disturbance (Acute) Mass of eye, left (Acute) Vertigo (Acute) Braulio-neglect of left side (Acute) Skin lesion (Acute) Skin rash (Acute) COVID-19 (Acute) Dupuytren's contracture of right hand (Acute) Ulnar nerve entrapment (Acute) Hemangioma (Acute) Left thigh Tinea pedis of both feet (Acute) Low vitamin B12 level (Acute) Fatigue (Acute) Carpal tunnel syndrome, right (Acute) PVD (peripheral vascular disease) (Chronic) Laceration of ear (Acute) Insomnia (Acute) COVID-19 (Acute ~01/02/22) Anxiety disorder (Acute) Flushing (Acute) Blocked tear duct (Acute) Posterior right knee pain (Acute) Seborrheic keratosis (Acute) Right forearm pain (Acute) Low back pain (Acute) Lightheadedness (Acute) Erectile dysfunction (Acute) History of arthroscopy of knee (Acute) History of wheezing (Acute) Rectal hemorrhage (Acute) Status post foot surgery (Acute) Caregiver burden (Acute 12/15/13) Insomnia (Chronic) Hypothyroid (Chronic) check TSH Obesity (Chronic) continue to work on weight loss Dupuytren's contracture (Chronic) SVT (supraventricular tachycardia) (Acute) Rosacea (Acute) Peyronie disease (Acute) Neuropathic pain, arm (Acute) left arm that is improved Kidney stone (Acute 01/28/06) bilateral Essential hypertension (Acute 12/08/12) check labs continue same meds Dizziness (Acute 11/03/16) Chewing tobacco use (Acute) Chest pain (Acute) normal MPI 12/2007 normal MPI 10/14 Atopic dermatitis (Acute) Acquired hallux rigidus (Acute) Medical History Rosacea SVT (supraventricular tachycardia) Kidney stone Atopic dermatitis Neuropathic pain, arm Surgical History Trigger finger, right little finger s/p right little finger release DOS: 12/29/23 Hx of colonoscopy FOOT SURGERY Hallux rigidus of both feet with surgery in 2005 Arthroplasty of knee (~12/2010) pt. reports this was a scope Family History Mother , age 79 Heart disease Neoplasm LUNG Sister No problems noted. Maternal Grandfather No problems noted. Paternal Grandfather Prostate cancer Maternal Grandmother Cancer Paternal Grandmother Cancer Sister No problems noted. Sister No problems noted. Daughter No problems noted. Social History (Updated 06/16/24 @ 09:14 by Gudelia Gonzalez) Smoking/Tobacco Use Status: Former Tobacco Use tobacco type: cigarettes and smokeless tobacco Quit Date: 03/01/07 Tobacco: How many years used: 14 Smokeless tobacco user: snuff Quit status: quit date established Second Hand Exposure: Yes Counseling given: other Smoking risk assessment performed?: Yes Alcohol Intake: current Alcohol Intake frequency: a few times a week Alcohol type: beer Details: 6 or more drinks monthly or less Drug use: Never Substance use type: does not use Counseling given: No Counseling provided: none Details: alcohol: t-1, couple beers Caregiver/Support person: No Household members: none Housing: house Communication Needs: Corrective Lenses Do you need help understanding health information?: Rarely Pets and animals: No Do you think of yourself as: straight/heterosexual Current gender identity: male What is your relationship status?: How often do you talk on the phone with friends or family?: decline to answer How often do you get together with friends or relatives?: decline to answer How often do you attend amish or confucianism services?: decline to answer Do you belong to any clubs or organized social groups?: decline to answer Panel score (0-1 are the most socially isolated patients): 0 What type of physical activity do you participate in: walking Duration: < 15 minutes/day Frequency: 1-2 times per week Special alex needs: No Seatbelt use: always Helmet use: No Drive intox or ride w/intox van driver: No Do you feel safe at home: Yes Do you feel safe in your relationship?: Yes POCUS Exam (ED) Limited Cardiac Exam DATE OF EXAM: 09/18/24 TIME OF EXAM: 06:13 PROVIDER THAT PERFORMED THE STUDY: Bj Griggs REASON FOR EXAM: Dyspnea VISUALIZED STRUCTURES: Left atrium, Left ventricle, Right ventricle, Mitral valve and Interventricular septum VIEW OBTAINED: Parasternal long-axis and Parasternal short-axis PERTINENT FINDINGS/IMPRESSION: No apparent abnormalities and Pericardial effusion (Trace) Exam complete
[2024-09-18 05:42] LABS: ALT 84 U/L (16-63); AST 48 U/L (15-37); Albumin 4.1 g/dL (3.4-5.0); Alkaline Phosphatase 159 U/L (46-116); Anion Gap 9.1 mmol/L (3-11); BUN 13 mg/dL (7-18); Bilirubin, Total 1.2 mg/dL (0.2-1.0); CO2 27.9 mmol/L (21.0-32.0); Calcium 9.0 mg/dL (8.5-10.1); Chloride 106 mmol/L (98-107); Estimated GFR 91.88 (mL/min/1.73m2); Glucose 113 mg/dL (74-106); NT-proBNP 523 pg/mL (<300); Potassium 4.0 mmol/L (3.5-5.1); Sodium 143 mmol/L (136-145); Total Protein 7.4 g/dL (6.4-8.2); Troponin I 6 ng/L (<or=76)
[2024-09-18 05:43] LABS: INR 1.0 (0.9-1.1); PTT Activated 27.9 sec (20.6-30.2); Prothrombin Time 10.4 sec (9.1-11.1)
[2024-09-18 06:31] LABS: Troponin I 7 ng/L (<or=76)
--- NOTE | 2024-09-18 06:49 | DI.[facility]_ITS ---
PROCEDURE INFORMATION: Exam: XR Chest Exam date and time: 09/18/2024 5:32 AM Age: 69 years old Clinical indication: Shortness of breath; SOB TECHNIQUE: Imaging protocol: Radiologic exam of the chest. Views: 1 view. COMPARISON: CR XR CHEST 2V PA LATERAL 10/09/2023 3:53 PM FINDINGS: Lungs: Mild prominence of the pulmonary interstitium which may be related to borderline pulmonary venous congestion. Pleural spaces: Unremarkable. No pleural effusion. No pneumothorax. Heart/Mediastinum: Mild cardiomegaly, unchanged. Vasculature: Atherosclerotic disease. Bones/joints: Age related osseous changes. IMPRESSION: Findings suggestive of borderline pulmonary venous congestion. Mild cardiomegaly. Dictated and Authenticated by: Paloma Lares MD. Orderin Indu Lorenzo MD
--- NOTE | 2024-09-18 07:40 | W.EDPROG ---
Date of service: 09/18/24 Time of Service: 07:40 Medical Decision Making I received signout on this 69-year-old male in the emergency department with new onset mild heart failure with reduced ejection fraction. He had a markedly elevated blood pressure. He feels improved. He is receiving an echocardiogram. I was in touch with Lalita Gill from his primary care office. Will repeat basic labs. 11 AM Patient is having his echocardiogram performed. He will be seen by his primary care later this week. His blood pressure is 103/36 off of the nitroglycerin drip. Will discharge with low-dose furosemide. His repeat basic metabolic panel shows no hypokalemia nor hypomagnesemia. Nonetheless given furosemide use I provided him with oral supplemental magnesium and potassium. Discharge Plan Disposition Patient Disposition: Home Discharge Details Clinical Impression: Flash pulmonary edema, Hypertensive emergency, Acute heart failure Primary Care Provider: Alvaro Hernadez ED Provider: Ashvin Barraza [place] Meds and New Rx's Prescriptions: New furosemide [Lasix] 20 mg tablet 20 mg PO DAILY Qty: 7 0RF Continued diphenhydramine HCl [Unisom SleepGels] 50 mg capsule 100 mg PO QHS loratadine [Allergy Relief (loratadine)] 10 mg tablet 10 mg PO DAILY acetaminophen [Tylenol 8 Hour] 650 mg tablet extended release 1,300 mg PO Q8H PRN aspirin [Aspir-81] 81 MG tablet,delayed release (DR/EC) 81 mg PO DAILY Qty: 90 triamcinolone acetonide 80 GM ointment 80 gm Topical BID Qty: 1 omeprazole 40 mg capsule,delayed release(DR/EC) 40 mg PO DAILY Qty: 90 3RF sildenafil [Viagra] 100 mg tablet 100 mg PO DAILY PRN (Reason: sexual activity) Qty: 30 2RF Rx Instructions: administer 30 minutes to 4 hours before activity cholecalciferol (vitamin D3) 625 mcg (25,000 unit) capsule 625 mcg PO QWEEK Qty: 30 2RF levothyroxine 75 mcg tablet 75 mcg PO DAILY Qty: 90 3RF metoprolol succinate 50 mg tablet extended release 24 hr 50 mg PO DAILY Qty: 90 3RF (DME) Aerochamber MV Spacer See Rx Instructions .ROUTE .MEDSUPPLY Qty: 1 0RF Rx Instructions: As directed albuterol sulfate [Ventolin HFA] 90 mcg/actuation HFA aerosol inhaler 2 puff inhalation QID PRN (Reason: shortness of breath or wheezing) Qty: 8.5 13RF atorvastatin 10 mg tablet 10 mg PO DAILY Qty: 90 3RF famotidine [Pepcid] 20 mg tablet 20 mg PO DAILY PRN (Reason: gerd) Qty: 90 3RF meclizine 25 mg tablet 25 mg PO QID PRN (Reason: motion sickness) Qty: 10 0RF No Action losartan 50 mg tablet 50 mg PO DAILY Qty: 90 3RF Discharge Instructions Additional Instructions: You were seen in the emergency department for your shortness of breath. You have signs of heart failure for which you are receiving a diuretic medication that you should take as directed. Your primary care provider will help arrange for follow-up. If you develop recurrence of shortness of breath please return to the emergency department.
[2024-09-18] MEDS: Metoprolol CR 50 MG TABCR PO (07:58)
[2024-09-18] MEDS: Losartan 50 MG TAB PO (07:59)
[2024-09-18 08:32] LABS: Troponin I 6 ng/L (<or=76)
[2024-09-18] MEDS: Potassium Chloride 20 MEQ TABCR 40 MEQ PO (09:42)
[2024-09-18] MEDS: Magnesium Oxide 400 MG TAB PO (09:43)
[2024-09-18 10:11] LABS: Anion Gap 8.7 mmol/L (3-11); BUN 11 mg/dL (7-18); CO2 28.3 mmol/L (21.0-32.0); Calcium 8.9 mg/dL (8.5-10.1); Chloride 106 mmol/L (98-107); Estimated GFR 91.88 (mL/min/1.73m2); Glucose 125 mg/dL (74-106); Magnesium 2.1 mg/dL (1.8-2.4); Potassium 3.9 mmol/L (3.5-5.1); Sodium 143 mmol/L (136-145)
== END 2024-09-18 12:09 | disposition home or self-care (01) ==
PROVIDERS: Student in an Organized Health Care Education/Training Program; Emergency Provider Emergency Medicine; PCP Family Medicine
DX: J81.0 Acute pulmonary edema (principal); I16.0 Hypertensive urgency; I11.0 Hypertensive heart disease with heart failure; I50.21 Acute systolic (congestive) heart failure; R00.0 Tachycardia, unspecified; E03.9 Hypothyroidism, unspecified; Z79.82 Long term (current) use of aspirin; Z79.899 Other long term (current) drug therapy; Z87.891 Personal history of nicotine dependence
CPT/HCPCS: 00123; 36415; 80048; 80053; 93005; 93308; 96365; 96366; 96375; 99285; 71045; 83735; 83880; 84484; 85025; 85610; 85730; 93010; 93306; J1938; J2305

== ENCOUNTER 2024-09-27 04:41 | Emergency (ER) | payer MEDICARE, OTHER, SELFPAY ==
[2024-09-27] VITALS (19 sets, daily range): BP systolic 181–222; BP diastolic 83–94; PULSE 92–103; RESP 13–24; O2SAT 93–97
--- NOTE | 2024-09-27 04:45 | DI.RAD_ITS ---
Exam(s) XR PORTABLE CHEST AP EXAM: XR PORTABLE CHEST AP CLINICAL HISTORY: SOB, HTN emergency TECHNIQUE: 2D digital imaging was performed. COMPARISON: CR XR CHEST 2V PA LATERAL from 10/09/2023 CR,XR XR PORTABLE CHEST AP from 09/18/2024 FINDINGS: LUNGS: Mildly increased interstitial changes. Pulmonary vascular prominence. No focal infiltrate. No pleural abnormality seen. HEART: Enlarged. AORTA: Normal diameter. BONES: Unremarkable for age. Soft tissues: Unremarkable. IMPRESSION: Cardiomegaly and mild CHF. The preliminary [facility] report was reviewed. DATA REPOSITORY: RADIATION DOSE DELIVERED:
--- NOTE | 2024-09-27 04:45 | RT.EKG_ITS ---
APPROVED REPORT Exam: Resting ECG Reason for Exam: short of breath Patient Location: E HR:102 bpm ECG Measurements Heart Rate 102 AXIS IA 214 P 75 QRSd 95 QRS 26 QT 351 T 55 QTc 456 Conclusion Sinus tachycardia...rate> 99 Multiple ventricular premature complexes...V complexes w/ short R-R intervls Borderline prolonged IA interval...IA >207, V-rate 91-120 I have reviewed and interpreted ECG and agree with software generated interpretation.
[2024-09-27 05:13] LABS: Abs Immature Grans 0.02 10^3/uL (0.0-0.06); HCT 40.5 % (40.0-50.0); HGB 13.9 g/dL (13.5-17.5); Immature Grans % 0.4 %; MCH 31.5 pg (27.0-33.0); MCHC 34.3 % (32.0-36.0); MCV 92 fL (80-95); MPV 9.9 fL (8.0-11.0); Platelet Count 192 10^3/uL (130-400); RBC 4.41 10^6/uL (4.36-5.78); RDW 13.2 % (11.8-14.1); RDW-SD 44.0 fL; WBC 5.46 10^3/uL (4.4-10.8)
[2024-09-27] MEDS: Furosemide 20 MG/2 ML VIAL IVP (05:20)
[2024-09-27] MEDS: Labetalol 100 MG/20 ML VIAL 20 MG IVP (05:21)
[2024-09-27] MEDS: Normal Saline Flush 10 ML SYR IVP (05:22)
--- NOTE | 2024-09-27 05:26 | W.ED.GENAD ---
Discharge Plan Disposition Patient Disposition: Home Condition: Good Discharge Details Clinical Impression: CHF exacerbation, Hypertensive urgency Primary Care Provider: Alvaro Hernadez ED Provider: Bj Griggs Home Meds and New Rx's Prescriptions: New furosemide [Lasix] 20 mg tablet 20 mg PO DAILY Qty: 30 2RF No Action diphenhydramine HCl [Unisom SleepGels] 50 mg capsule 100 mg PO QHS loratadine [Allergy Relief (loratadine)] 10 mg tablet 10 mg PO DAILY acetaminophen [Tylenol 8 Hour] 650 mg tablet extended release 1,300 mg PO Q8H PRN cholecalciferol (vitamin D3) 625 mcg (25,000 unit) capsule 625 mcg PO ONCE aspirin [Aspir-81] 81 MG tablet,delayed release (DR/EC) 81 mg PO DAILY Qty: 90 triamcinolone acetonide 80 GM ointment 80 gm Topical BID Qty: 1 omeprazole 40 mg capsule,delayed release(DR/EC) 40 mg PO DAILY Qty: 90 3RF sildenafil [Viagra] 100 mg tablet 100 mg PO DAILY PRN (Reason: sexual activity) Qty: 30 2RF Rx Instructions: administer 30 minutes to 4 hours before activity levothyroxine 75 mcg tablet 75 mcg PO DAILY Qty: 90 3RF metoprolol succinate 50 mg tablet extended release 24 hr 50 mg PO DAILY Qty: 90 3RF (DME) Aerochamber MV Spacer See Rx Instructions .ROUTE .MEDSUPPLY Qty: 1 0RF Rx Instructions: As directed albuterol sulfate [Ventolin HFA] 90 mcg/actuation HFA aerosol inhaler 2 puff inhalation QID PRN (Reason: shortness of breath or wheezing) Qty: 8.5 13RF atorvastatin 10 mg tablet 10 mg PO DAILY Qty: 90 3RF famotidine [Pepcid] 20 mg tablet 20 mg PO DAILY PRN (Reason: gerd) Qty: 90 3RF losartan 50 mg tablet 50 mg PO DAILY Qty: 90 3RF meclizine 25 mg tablet 25 mg PO QID PRN (Reason: motion sickness) Qty: 10 0RF Discharge Instructions Instructions: Heart Healthy Diet Additional Instructions: At this time after the furosemide, you have had notable improvement of your symptoms, your blood pressure is improved, and your symptoms of shortness of breath has been improved. As we discussed together it is absolutely critical that you do your very best to avoid salt is much as possible. I have sent your prescription for furosemide every day, however it would be my recommendation that if you are able to control the diet component well, and come through this acute exacerbation, that you could then transition to taking the furosemide every other day. Please go home and take your regular antihypertensive morning medications. Please follow-up closely with the metal finisher. If you notice any worsening of your symptoms, or any new symptoms such as vomiting, diarrhea, fever, chills, shortness of breath, chest pain, numbness, weakness, or fainting , please return immediately to the emergency department for reevaluation. Please follow up with your primary care provider as soon as possible for reassessment and reevaluation. As always, it was a pleasure participating in your medical care today. Referrals: Alvaro Hernadez MD [Primary Care Provider, Medicine] HPI General Date/Time Provider Initiated Documentation: 09/27/24 04:44. HPI Narrative: This is a 69-year-old male with a past medical history of hypertension, high cholesterol, hypothyroidism, who presents today for evaluation of shortness of breath. Patient was seen here on 09/18/2024. At that time he had evidence to suggest a mild congestive heart failure exacerbation. He was notably hypertensive. He had a formal echo that was performed which was relatively unremarkable with no signs of diminished ejection fraction. He was discharged home and followed up closely with his primary care provider who started him on a 7-day course of furosemide. He finished that just a few days ago. He had been doing well until tonight when he woke up this evening and again felt notably short of breath. He denies any chest pain or chest tightness. He checked his blood pressure again and it was noted to be very elevated once more. He then came to the emergency department for further assessment. He denies any pleuritic chest pain. He denies any numbness or tingling. He denies any change in diet. He denies any positional nocturnal dyspnea. Symptoms are made slightly worse when he exerts himself. He denies any other complaints at this time. Related Data Home Medications ?Medication ?Instructions ?Recorded ?Confirmed aspirin 81 mg tablet,delayed 81 mg PO DAILY #90 tab-caps 11/06/15 09/27/24 release (Aspir-) triamcinolone acetonide 0.025 % 80 gm topical BID ##1 03/25/16 09/27/24 topical ointment omeprazole 40 mg capsule,delayed 40 mg PO DAILY #90 caps 10/17/19 09/27/24 release loratadine 10 mg tablet (Allergy 10 mg PO DAILY 02/25/21 09/27/24 Relief (loratadine)) acetaminophen 650 mg 1,300 mg PO Q8H PRN 03/18/23 09/27/24 tablet,extended release (Tylenol 8 Hour) sildenafil 100 mg tablet (Viagra) 100 mg PO DAILY PRN sexual 05/31/23 09/27/24 activity #30 tabs diphenhydramine HCl 50 mg capsule 100 mg PO QHS 06/01/23 09/27/24 (Unisom SleepGels) levothyroxine 75 mcg tablet 75 mcg PO DAILY #90 tab-caps 09/08/23 09/27/24 meclizine 25 mg tablet 25 mg PO QID PRN motion sickness 01/22/24 09/27/24 #10 tabs metoprolol succinate 50 mg 50 mg PO DAILY #90 tabs 03/20/24 09/27/24 tablet,extended release 24 hr inhalational spacing device #1 ea 05/16/24 09/27/24 (Aerochamber MV spacer) albuterol sulfate 90 mcg/actuation 2 puff inhalation QID PRN 06/19/24 09/27/24 aerosol inhaler (Ventolin HFA) shortness of breath or wheezing #8.5 grams atorvastatin 10 mg tablet 10 mg PO DAILY #90 tabs 07/01/24 09/27/24 famotidine 20 mg tablet (Pepcid) 20 mg PO DAILY PRN gerd #90 08/03/24 09/27/24 tab-caps losartan 50 mg tablet 50 mg PO DAILY #90 tabs 09/18/24 09/27/24 cholecalciferol (vitamin D3) 625 625 mcg PO ONCE 09/19/24 09/27/24 mcg (25,000 unit) capsule furosemide 20 mg tablet (Lasix) 20 mg PO DAILY #30 tabs 09/27/24 Previous Rx's ?Medication ?Instructions ?Recorded omeprazole 40 mg capsule,delayed 40 mg PO DAILY #90 caps 08/18/20 release sildenafil 100 mg tablet (Viagra) 100 mg PO DAILY PRN sexual 05/31/23 activity #30 tabs levothyroxine 75 mcg tablet 75 mcg PO DAILY #90 tab-caps 09/08/23 meclizine 25 mg tablet 25 mg PO QID PRN motion sickness 01/22/24 #10 tabs metoprolol succinate 50 mg 50 mg PO DAILY #90 tabs 03/20/24 tablet,extended release 24 hr inhalational spacing device #1 ea 05/16/24 (Aerochamber MV spacer) albuterol sulfate 90 mcg/actuation 2 puff inhalation QID PRN 06/19/24 aerosol inhaler (Ventolin HFA) shortness of breath or wheezing #8.5 grams atorvastatin 10 mg tablet 10 mg PO DAILY #90 tabs 07/01/24 famotidine 20 mg tablet (Pepcid) 20 mg PO DAILY PRN gerd #90 08/03/24 tab-caps losartan 50 mg tablet 50 mg PO DAILY #90 tabs 09/18/24 furosemide 20 mg tablet (Lasix) 20 mg PO DAILY #30 tabs 09/27/24 Allergies Allergy/AdvReac Type Severity Reaction Status Date / Time oxycodone HCl (From Percocet) AdvReac GI Verified 09/27/24 05:45 General Stated Complaint: SOB/SuddenOnset MANDY: 3 Exam Narrative Exam Narrative: 1.Const: Well-nourished, Well-developed, appearing stated age 2.Eyes: PERRL, no conjunctival injection, and symmetrical lids. 3.ENT: Atraumatic external nose and ears. Moist MM. Neck: Symmetric, trachea midline, No thyromegaly. 4.CVS: +S1/S2, Peripheral pulses 2+ and equal in all extremities. Brisk capillary refill in all extremities. 5.RESP: Unlabored respiratory effort. Clear to auscultation bilaterally. No wheezes rales or rhonchi 6.GI: Soft, Nontender/Nondistended, No hepatosplenomegaly. No guarding or rebound. 7.MSK: Normocephalic/Atraumatic, Extremities w/o deformity or ttp No cyanosis or clubbing, Normal movement of all extremities. Trace pitting edema in the lower extremities 8.Skin: Warm, Dry. No rashes or lesions. 9.Neuro: jig filler II-XII grossly intact. Sensation grossly intact, no focal neurologic deficits. 10.Psych: (AAO) x3. Appropriate mood and affect Course Vital Signs Vital signs: Vital Signs Pulse 103 H 09/27/24 04:45 Respiratory Rate 21 09/27/24 04:45 Blood Pressure 222/94 H 09/27/24 04:45 Pulse Oximetry 95 09/27/24 04:45 Pulse 96 H 09/27/24 05:21 Respiratory Rate 14 09/27/24 04:54 Respiratory Effort Normal, Non-Labored 09/27/24 04:54 Respiratory Depth Normal 09/27/24 04:54 Respiratory Pattern Normal 09/27/24 04:54 Blood Pressure 186/94 H 09/27/24 05:21 Blood Pressure Position Sitting 09/27/24 04:45 Pulse Oximetry 95 09/27/24 04:45 Oxygen Delivery Method Room Air 09/27/24 04:45 Oxygen Flow Rate 0 09/27/24 04:45 Pain Level 0 09/27/24 04:45 Lab/Test Results Lab/Test Results: Laboratory Tests Range/Units 09/27/24 04:57 WBC (4.4-10.8) 10^3/uL 5.46 RBC (4.36-5.78) 10^6/uL 4.41 Hgb (13.5-17.5) g/dL 13.9 Hct (40.0-50.0) % 40.5 MCV (80-95) fL 92 MCH (27.0-33.0) pg 31.5 MCHC (32.0-36.0) % 34.3 RDW (11.8-14.1) % 13.2 Plt Count (130-400) 10^3/uL 192 MPV (8.0-11.0) fL 9.9 Immature Gran % % 0.4 Neutrophils % % 61.4 Lymphocytes % % 22.7 Monocytes % % 11.7 Eosinophils % % 3.3 Basophils % % 0.5 Nucleated RBC % (0.0-0.3) % 0.0 Absolute Neutrophils (1.2-6.7) 10^3/uL 3.35 Absolute Lymphocytes (1.2-3.4) 10^3/uL 1.24 Absolute Monocytes (0.1-0.8) 10^3/uL 0.64 Absolute Eosinophils (0.0-0.7) 10^3/uL 0.18 Absolute Basophils (0.0-0.2) 10^3/uL 0.03 Medical Decision Making This is a 69-year-old male with a past medical history of hypertension, high cholesterol, hypothyroidism, who presents today for evaluation of shortness of breath. Patient was seen here on 09/18/2024. At that time he had evidence to suggest a mild congestive heart failure exacerbation. He was notably hypertensive. He had a formal echo that was performed which was relatively unremarkable with no signs of diminished ejection fraction. He was discharged home and followed up closely with his primary care provider who started him on a 7-day course of furosemide. He finished that just a few days ago. He had been doing well until tonight when he woke up this evening and again felt notably short of breath. He denies any chest pain or chest tightness. He checked his blood pressure again and it was noted to be very elevated once more. He then came to the emergency department for further assessment. He denies any pleuritic chest pain. He denies any numbness or tingling. He denies any change in diet. He denies any positional nocturnal dyspnea. Symptoms are made slightly worse when he exerts himself. He denies any other complaints at this time. Exam demonstrates well-appearing male, clear lung sounds, notably hypertensive, trace pitting edema in lower extremities. Differential includes hypertensive emergency, mild CHF exacerbation, less likely ACS. Will evaluate for these etiologies, give 20 of labetalol, 20 of Lasix, monitor closely and reassess. 6:56 AM Chest x-ray shows evidence of mild interstitial edema, patient's laboratory workup is quite stable, no white count bandemia or left shift. Electrolytes stable, renal function stable, serial troponins are normal. proBNP is mildly elevated at 392 which is lower than what he is normally been. After 20 of Lasix and 20 of labetalol the patient is feeling much better. Blood pressure has improved by 40 point systolic, and he has peed over a liter of urine. He feels well, and his shortness of breath is resolved, and he feels well and would like to go home. Patient does confess that this past week they had family over and they had been doing a fair bit of eating out, which was certainly high in salt. I suspect this is may have been an exacerbation component of his symptoms last night. Recommend continued avoidance of salt. Will give him a prescription for daily Lasix at 20 mg daily, however it is my recommendation to him that he transitions to a once every other day dosing once he feels comfortable after this acute episode. Additionally, I made it very clear that it is critically important to follow-up with his metal finisher appointment today, as well as his primary care provider to come up with a long-term plan of potential diuretic necessity. I have extensively reviewed the treatment plan and discharge instructions with the patient and their family. I have addressed all patient concerns at this time. The patient and family was made aware of what symptoms to monitor for that would warrant a return to the emergency department. Discussed the plan with the patient and family, they demonstrate verbal understanding and agreement with our assessment and plan at this time. The documentation in this chart was dictated using [employer] dictation software. Please excuse any dictation errors. FINDINGS: Tubes, catheters and devices: Overlying monitoring leads. Lungs: Mild interstitial edema. No lobar consolidation. Pleural spaces: No pleural thickening. No pneumothorax. Costophrenic angles sharp. Heart/Mediastinum: Cardiac silhouette stable. Bones/joints: Spine and bilateral shoulder mild degenerative changes. No acute fracture. IMPRESSION: Mild interstitial edema. Thank you for allowing us to participate in the care of your patient. Dictated and Authenticated by: Jesus Lam MD 09/27/2024 6:29 AM Eastern Time ([place] & [place]) [facility] All Active Problems (Updated 09/27/24 @ 06:51 by Bj Griggs DO) Hypertensive urgency (Acute) CHF exacerbation (Acute) Acute heart failure (Acute) Hypertensive emergency (Acute) Flash pulmonary edema (Acute) Hyperlipemia (Acute) Post-nasal drip (Acute) Visual disturbance (Acute) Mass of eye, left (Acute) Vertigo (Acute) Braulio-neglect of left side (Acute) Skin lesion (Acute) Skin rash (Acute) COVID-19 (Acute) Dupuytren's contracture of right hand (Acute) Ulnar nerve entrapment (Acute) Hemangioma (Acute) Left thigh Tinea pedis of both feet (Acute) Low vitamin B12 level (Acute) Fatigue (Acute) Carpal tunnel syndrome, right (Acute) PVD (peripheral vascular disease) (Chronic) Laceration of ear (Acute) Insomnia (Acute) COVID-19 (Acute ~01/02/22) Anxiety disorder (Acute) Flushing (Acute) Blocked tear duct (Acute) Posterior right knee pain (Acute) Seborrheic keratosis (Acute) Right forearm pain (Acute) Low back pain (Acute) Lightheadedness (Acute) Erectile dysfunction (Acute) History of arthroscopy of knee (Acute) History of wheezing (Acute) Rectal hemorrhage (Acute) Status post foot surgery (Acute) Caregiver burden (Acute 12/15/13) Insomnia (Chronic) Hypothyroid (Chronic) check TSH Obesity (Chronic) continue to work on weight loss Dupuytren's contracture (Chronic) SVT (supraventricular tachycardia) (Acute) Rosacea (Acute) Peyronie disease (Acute) Neuropathic pain, arm (Acute) left arm that is improved Kidney stone (Acute 01/28/06) bilateral Essential hypertension (Acute 12/08/12) check labs continue same meds Dizziness (Acute 11/03/16) Chewing tobacco use (Acute) Chest pain (Acute) normal MPI 12/2007 normal MPI 10/14 Atopic dermatitis (Acute) Acquired hallux rigidus (Acute) Medical History Rosacea SVT (supraventricular tachycardia) Kidney stone Atopic dermatitis Neuropathic pain, arm Surgical History Trigger finger, right little finger s/p right little finger release DOS: 12/29/23 Hx of colonoscopy FOOT SURGERY Hallux rigidus of both feet with surgery in 2005 Arthroplasty of knee (~12/2010) pt. reports this was a scope Family History Mother , age 79 Heart disease Neoplasm LUNG Sister No problems noted. Maternal Grandfather No problems noted. Paternal Grandfather Prostate cancer Maternal Grandmother Cancer Paternal Grandmother Cancer Sister No problems noted. Sister No problems noted. Daughter No problems noted. Social History (Updated 06/16/24 @ 09:14 by Gudelia Gonzalez) Smoking/Tobacco Use Status: Former Tobacco Use tobacco type: cigarettes and smokeless tobacco Quit Date: 03/01/07 Tobacco: How many years used: 14 Smokeless tobacco user: snuff Quit status: quit date established Second Hand Exposure: Yes Counseling given: other Smoking risk assessment performed?: Yes Alcohol Intake: current Alcohol Intake frequency: a few times a week Alcohol type: beer Details: 6 or more drinks monthly or less Drug use: Never Substance use type: does not use Counseling given: No Counseling provided: none Details: alcohol: t-1, couple beers Caregiver/Support person: No Household members: none Housing: house Communication Needs: Corrective Lenses Do you need help understanding health information?: Rarely Pets and animals: No Do you think of yourself as: straight/heterosexual Current gender identity: male What is your relationship status?: How often do you talk on the phone with friends or family?: decline to answer How often do you get together with friends or relatives?: decline to answer How often do you attend druze or baptism services?: decline to answer Do you belong to any clubs or organized social groups?: decline to answer Panel score (0-1 are the most socially isolated patients): 0 What type of physical activity do you participate in: walking Duration: < 15 minutes/day Frequency: 1-2 times per week Special alex needs: No Seatbelt use: always Helmet use: No Drive intox or ride w/intox truck driver instructor: No Do you feel safe at home: Yes Do you feel safe in your relationship?: Yes PAWSS Have you Been Recently Intoxicated or Drunk Within the Last 30 days?: No Have you Ever Experienced Previous Episodes of Alcohol Withdrawal?: No Have you ever Experienced Withdrawal Seizures?: No Have you ever Experienced Delirium Tremens(DT)s?: No Have you ever undergone Alcohol Rehabilitation Treatment (i.e, inpt ot outpatient treatment programs)?: No Have you ever Experienced Blackouts?: No Have you ever Combined Alcohol with other Downers within the last 90 days?: No Have you ever Combined Alcohol with any other Substance of Abuse during the last 90 days?: No Positive Blood Alcohol level on Presentation? [PCS.BAL]: Unable to Obtain Evidence of Increased Autonomic Activity (i.e. HR>120, tremor, sweating, agitation, nausea)?: No Result: 0
[2024-09-27 05:40] LABS: ALT 48 U/L (16-63); AST 28 U/L (15-37); Albumin 3.9 g/dL (3.4-5.0); Alkaline Phosphatase 120 U/L (46-116); Anion Gap 8.4 mmol/L (3-11); BUN 15 mg/dL (7-18); Bilirubin, Total 0.9 mg/dL (0.2-1.0); CO2 27.6 mmol/L (21.0-32.0); Calcium 9.0 mg/dL (8.5-10.1); Chloride 107 mmol/L (98-107); Estimated GFR 80.97 (mL/min/1.73m2); Glucose 117 mg/dL (74-106); NT-proBNP 392 pg/mL (<300); Potassium 3.7 mmol/L (3.5-5.1); Sodium 143 mmol/L (136-145); Total Protein 7.0 g/dL (6.4-8.2); Troponin I 7 ng/L (<or=76)
[2024-09-27 06:30] LABS: Troponin I 6 ng/L (<or=76)
--- NOTE | 2024-09-27 06:30 | DI.VRAD_ITS ---
PROCEDURE INFORMATION: Exam: XR Chest Exam date and time: 09/27/2024 5:09 AM Age: 69 years old Clinical indication: Shortness of breath and other: HTN emergency TECHNIQUE: Imaging protocol: Radiologic exam of the chest. Views: 1 view. COMPARISON: CR XR PORTABLE CHEST AP 09/18/2024 5:32 AM FINDINGS: Tubes, catheters and devices: Overlying monitoring leads. Lungs: Mild interstitial edema. No lobar consolidation. Pleural spaces: No pleural thickening. No pneumothorax. Costophrenic angles sharp. Heart/Mediastinum: Cardiac silhouette stable. Bones/joints: Spine and bilateral shoulder mild degenerative changes. No acute fracture. IMPRESSION: Mild interstitial edema. Dictated and Authenticated by: Jesus Lam MD. Orderin Indu Lorenzo MD
--- NOTE | 2024-09-27 11:08 | NUR.NOTE ---
Nursing Note: The patient called about the Lasix prescription that was supposed to be sent it. I looked and saw that it was sent to the patient's mail order pharmacy instead of [facility] in [place]. Per the patient's request, I called [facility] in [place] and gave them the verbal for the Lasix that was prescribed on the discharge instructions.
== END 2024-09-27 07:06 | disposition home or self-care (01) ==
PROVIDERS: Emergency Provider Student in an Organized Health Care Education/Training Program; PCP Family Medicine
DX: I50.9 Heart failure, unspecified (principal); I16.1 Hypertensive emergency; R06.02 Shortness of breath
CPT/HCPCS: 99291; 36415; 96374; 96375; 80053; 93005; 99215; 71045; 83880; 84484; 85025; 93010; J1920; J1938

== ENCOUNTER → 2024-10-26 11:00 | Outpatient (BNVA) | payer MEDICARE, OTHER, SELFPAY | PROVIDERS: PCP Family Medicine; Referring Provider Family Medicine; Visit Provider Student in an Organized Health Care Education/Training Program | DX: M65.341 Trigger finger, right ring finger (principal); M72.0 Palmar fascial fibromatosis [Dupuytren] | CPT/HCPCS: 99214 ==

== ENCOUNTER 2024-10-31 13:57 | Day surgery (SDC) | payer MEDICARE, OTHER, SELFPAY ==
--- NOTE | 2024-10-31 11:19 | W.PM.DSUDISC ---
Date of service: 10/31/24 Discharge Plan Disposition Patient Disposition: Home Condition: Good Discharge Details Reason For Visit: Right ring trigger finger Attending Provider: Nayan Sandoval Primary Care Provider: Alvaro Hernadez Home Meds and New Rx's Prescriptions: New ibuprofen 600 mg tablet 600 mg PO TID PRN (Reason: pain) Qty: 60 0RF Continued diphenhydramine HCl [Unisom SleepGels] 50 mg capsule 100 mg PO QHS levothyroxine 75 mcg tablet 75 mcg PO DAILY Qty: 90 3RF sildenafil [Viagra] 100 mg tablet 100 mg PO DAILY PRN (Reason: sexual activity) Qty: 30 2RF Rx Instructions: administer 30 minutes to 4 hours before activity loratadine [Allergy Relief (loratadine)] 10 mg tablet 10 mg PO DAILY acetaminophen [Tylenol 8 Hour] 650 mg tablet extended release 1,300 mg PO Q8H PRN cholecalciferol (vitamin D3) 625 mcg (25,000 unit) capsule 625 mcg PO ONCE losartan 25 mg tablet 25 mg PO DAILY Qty: 90 3RF Rx Instructions: Take with already prescribed 50mg Losartan for total of 75mg Daily. aspirin [Aspir-81] 81 MG tablet,delayed release (DR/EC) 81 mg PO DAILY Qty: 90 triamcinolone acetonide 80 GM ointment 80 gm Topical BID Qty: 1 omeprazole 40 mg capsule,delayed release(DR/EC) 40 mg PO DAILY Qty: 90 3RF metoprolol succinate 50 mg tablet extended release 24 hr 50 mg PO DAILY Qty: 90 3RF (DME) Aerochamber MV Spacer See Rx Instructions .ROUTE .MEDSUPPLY Qty: 1 0RF Rx Instructions: As directed albuterol sulfate [Ventolin HFA] 90 mcg/actuation HFA aerosol inhaler 2 puff inhalation QID PRN (Reason: shortness of breath or wheezing) Qty: 8.5 13RF atorvastatin 10 mg tablet 10 mg PO DAILY Qty: 90 3RF famotidine [Pepcid] 20 mg tablet 20 mg PO DAILY PRN (Reason: gerd) Qty: 90 3RF losartan 50 mg tablet 50 mg PO DAILY Qty: 90 3RF furosemide [Lasix] 20 mg tablet 20 mg PO DAILY Qty: 90 3RF meclizine 25 mg tablet 25 mg PO QID PRN (Reason: motion sickness) Qty: 10 0RF Discharge Instructions Stand Alone Forms: Lori Duff Finger Release Activity:: Elevate Remove Dressings/Wound Care:: 48 hours Shower/Bathe:: 48 hours Diet:: As Tolerated Discharge Orders Discharge Orders: Discharge Order (Routine); Ordered 10/31/24 Ordered By: Dacia Timmons
[2024-10-31 14:48] VITALS: BP 123/63; PULSE 73; RESP 16; TEMP 36.2; O2SAT 95
[2024-10-31] MEDS: Lidocaine 1% Multi-Dose W/EPI 1/100,000 50 ML VIAL (15:56)
[2024-10-31] MEDS: Sodium Bicarbonate 50 MEQ/50 ML VIAL (15:57)
[2024-10-31 16:24] VITALS: BP 146/82; PULSE 86; RESP 18; TEMP 36.7; O2SAT 97
--- NOTE | 2024-10-31 17:58 | W.PM.OP ---
Operative Note Operative Note PRE-OP DIAGNOSIS: Right Ring Finger Trigger Finger Dupuytren's Contracture -right hand POST-OP DIAGNOSIS: same PROCEDURE: Trigger Finger Release - Right Ring Finger with Partial Palmar Fasciectomy SURGEON: Nayan Sandoval ANESTHESIA TYPE: Local By Surgeon Refer to Anesthesia Record PATHOLOGY: none sent COMPLICATIONS: None Patient was transported to: same day Patient's condition: stable Indications: I have seen Fer in clinic for symptoms of a trigger finger along with a concomitant central cord of the ring finger ray from Dupuytren's contracture. The catching, clicking, locking, and pain limited function. The diagnosis of trigger finger was evident. The symptoms had not responded to conservative measures. I discussed trigger finger release with the patient. I reviewed the risks of the procedure to include, but not limited to, bleeding, infection, pain, stiffness, incomplete release, damage to nerves or vessels, continued catching, recurrence. Despite these risks, the patient elected to proceed. Findings: There was a thickened contracted central cord about the ring finger ray. This was resected. There was a tightened A1 basilia which was released. The flexor tendons were inspected and the patient was able to move the finger without any catching, clicking, or locking. Procedure Description: Fer was greeted in the preoperative holding area where the correct side was identified and marked. The consent was reviewed with the patient and signed. All questions were answered. He was taken back to the operating room. The patient was placed into the supine position on the operating room table with the right arm on an arm board. All bony prominences were well padded. No prophylactic antibiotics were administered since this was a clean, elective hand surgical case. The right arm was then prepped with Chloraprep and draped in a standard fashion with stockinette and extremity drape. A timeout to confirm correct identity, side and site, procedure, allergies, anesthesia, and medical concerns was performed. The surgical site was marked as a Brandi incision directly over the A1 basilia and the central cord of the involved digit. This was confirmed with palpation during finger flexion. This area, overlying the metacarpal head, was then anesthetized with 1% Lidocaine with epinephrine and buffered with sodium bicarbonate. The patient tolerated this well and once the anesthetic had setup, the procedure began. This Brandi type incision was then made along the distal aspect of the palm overlying the central cord of the ring finger ray extending to the proximal palmar flexion crease. The deep tissues were dissected bluntly. The overlying skin which was tethered to some of the central cord was elevated and the central cord was identified. It was transected proximally and then elevated out of the hand transecting at its terminal extent at the level of the A1 basilia and flexor tendon sheath. The A1 basilia was not visible and neurovascular structures were retracted medially and laterally. There were no crossing structures over the A1 basilia. The proximal edge of the basilia was identified and the basilia was incised with tenotomy scissors. There was a release of the tendons once this was fully released. The tendons were then removed from the wound and inspected. The tendons were then returned and the patient was asked to move the finger into deep flexion and back to extension. There was no recreation of the pre-operative symptoms. The hand was then once more inspected for any A0 basilia or area of possible constriction. There is a few areas of skin tethered from the Dupuytren's contracture which were transected to free up the overlying skin. The wound was then irrigated and the skin was closed with a 4-0 Nylon. This was dressed with gauze and a Conform dressing. The patient tolerated the procedure well and was returned to the Same Day Surgery area in a stable condition suffering no known complication. Date of Procedure: 10/31/24
== END 2024-10-31 16:38 | disposition home or self-care (01) ==
LOC: SUR 13:58
PROVIDERS: PCP Family Medicine; Visit Provider Student in an Organized Health Care Education/Training Program
PROC: (CPT 26055; principal; 2024-10-31 17:00)
DX: M65.341 Trigger finger, right ring finger (principal)
CPT/HCPCS: 26055; J2004

== ENCOUNTER → 2024-11-09 10:18 | Outpatient (BNVA) | payer MEDICARE, OTHER, SELFPAY | PROVIDERS: PCP Family Medicine; Referring Provider Family Medicine; Visit Provider Physician Assistant | DX: Z47.89 Encounter for other orthopedic aftercare (principal); M65.341 Trigger finger, right ring finger; M72.0 Palmar fascial fibromatosis [Dupuytren] | CPT/HCPCS: 99024 ==

== ENCOUNTER → 2024-12-07 10:48 | Outpatient (BNVA) | payer MEDICARE, OTHER, SELFPAY | PROVIDERS: PCP Family Medicine; Referring Provider Family Medicine; Visit Provider Physician Assistant | DX: Z47.89 Encounter for other orthopedic aftercare (principal); M65.341 Trigger finger, right ring finger | CPT/HCPCS: 99024 ==

== ENCOUNTER → 2024-12-27 09:51 | Outpatient (BNVA) | payer MEDICARE, OTHER, SELFPAY | PROVIDERS: PCP Family Medicine; Referring Provider Family Medicine; Visit Provider Registered Nurse | DX: I50.9 Heart failure, unspecified (principal); I10 Essential (primary) hypertension | CPT/HCPCS: 99214 ==

== ENCOUNTER 2025-02-09 13:09 | Emergency (ER) | payer MEDICARE, OTHER, SELFPAY ==
[2025-02-09] VITALS (10 sets, daily range): BP systolic 136–162; BP diastolic 60–75; PULSE 71–80; RESP 0–20; TEMP 36.8; O2SAT 93–96
--- NOTE | 2025-02-09 13:15 | RT.EKG_ITS ---
APPROVED REPORT Exam: Resting ECG Reason for Exam: High blood pressure Patient Location: E HR:73 bpm ECG Measurements Heart Rate 73 AXIS NV 207 P 40 QRSd 92 QRS 32 QT 399 T 32 QTc 441 Conclusion Sinus rhythm...normal P axis, V-rate 60- 99 No Occlusion PR
--- NOTE | 2025-02-09 13:30 | W.ED.GENAD ---
Discharge Plan Disposition Patient Disposition: Home Condition: Stable Discharge Details Clinical Impression: Temporary high blood pressure Primary Care Provider: Alvaro Hernadez ED Provider: Cristal Vallecillo Home Meds and New Rx's Prescriptions: Continued diphenhydramine HCl [Unisom SleepGels] 50 mg capsule 100 mg PO QHS levothyroxine 75 mcg tablet 75 mcg PO DAILY Qty: 90 3RF sildenafil [Viagra] 100 mg tablet 100 mg PO DAILY PRN (Reason: sexual activity) Qty: 30 2RF Rx Instructions: administer 30 minutes to 4 hours before activity loratadine [Allergy Relief (loratadine)] 10 mg tablet 10 mg PO DAILY acetaminophen [Tylenol 8 Hour] 650 mg tablet extended release 1,300 mg PO Q8H PRN cholecalciferol (vitamin D3) 625 mcg (25,000 unit) capsule 625 mcg PO ONCE losartan 25 mg tablet 25 mg PO DAILY Qty: 90 3RF Rx Instructions: Take with already prescribed 50mg Losartan for total of 75mg Daily. meclizine 25 mg tablet 25 mg PO QID PRN (Reason: motion sickness) Qty: 10 0RF Belsomra 5 mg tablet 5 mg PO QHS Qty: 30 1RF aspirin [Aspir-81] 81 MG tablet,delayed release (DR/EC) 81 mg PO DAILY Qty: 90 triamcinolone acetonide 80 GM ointment 80 gm Topical BID Qty: 1 omeprazole 40 mg capsule,delayed release(DR/EC) 40 mg PO DAILY Qty: 90 3RF metoprolol succinate 50 mg tablet extended release 24 hr 50 mg PO DAILY Qty: 90 3RF (DME) Aerochamber MV Spacer See Rx Instructions .ROUTE .MEDSUPPLY Qty: 1 0RF Rx Instructions: As directed albuterol sulfate [Ventolin HFA] 90 mcg/actuation HFA aerosol inhaler 2 puff inhalation QID PRN (Reason: shortness of breath or wheezing) Qty: 8.5 13RF atorvastatin 10 mg tablet 10 mg PO DAILY Qty: 90 3RF famotidine [Pepcid] 20 mg tablet 20 mg PO DAILY PRN (Reason: gerd) Qty: 90 3RF losartan 50 mg tablet 50 mg PO DAILY Qty: 90 3RF furosemide [Lasix] 20 mg tablet 20 mg PO DAILY Qty: 90 3RF ibuprofen 600 mg tablet 600 mg PO TID PRN (Reason: pain) Qty: 60 0RF Discharge Instructions Instructions: High blood pressure in adults, Low-sodium diet Additional Instructions: At this time your blood pressure is within normal limits it is 136/60, it does not require treatment at this time. Please continue taking your normal blood pressure regimen at home as previously prescribed. The EKG looks within normal limits. The episode of high blood pressure could be caused from something called sleep apnea which is treated with the CPAP machine. Please follow-up with your primary care provider or meat clerk regarding your concerns. Follow up with primary care provider in 3-5 days. Return to ED sooner if any worsening chest pain, shortness of breath leg swelling fever over 100.8 headache weakness on one side of your body or the other or concerns. Stand Alone Forms: Portal Information Referrals: Alvaro Hernadez MD [Primary Care Provider, Medicine] - 5 days Referral Note: ER follow up/ Call for an appointment Clinical Impression: Temporary high blood pressure HPI General Mode of arrival: ambulatory. Date/Time Provider Initiated Documentation: 02/09/25 13:11. Limitations to Documentation: no limitations. Information obtained by: patient, RN notes reviewed and old records reviewed. HPI Narrative: 69 year old male presents to the ER with a episode of High BP at 0300 this am. Patient states he had a small amount of shortness of breath he took his normal BP meds and now his BP is 136/60. He denies any chest pain, headache, blurry vision. Denies any swelling in his legs. Has a follow up appt with Dr. Minnie calderón. Related Data Home Medications ?Medication ?Instructions ?Recorded ?Confirmed aspirin 81 mg tablet,delayed 81 mg PO DAILY #90 tab-caps 11/06/15 02/09/25 release (Aspir-) triamcinolone acetonide 0.025 % 80 gm topical BID ##1 03/25/16 02/09/25 topical ointment omeprazole 40 mg capsule,delayed 40 mg PO DAILY #90 caps 10/17/19 02/09/25 release loratadine 10 mg tablet (Allergy 10 mg PO DAILY 02/25/21 02/09/25 Relief (loratadine)) acetaminophen 650 mg 1,300 mg PO Q8H PRN 03/18/23 02/09/25 tablet,extended release (Tylenol 8 Hour) diphenhydramine HCl 50 mg capsule 100 mg PO QHS 06/01/23 02/09/25 (Unisom SleepGels) metoprolol succinate 50 mg 50 mg PO DAILY #90 tabs 03/20/24 02/09/25 tablet,extended release 24 hr inhalational spacing device #1 ea 05/16/24 02/09/25 (Aerochamber MV spacer) albuterol sulfate 90 mcg/actuation 2 puff inhalation QID PRN 06/19/24 02/09/25 aerosol inhaler (Ventolin HFA) shortness of breath or wheezing #8.5 grams atorvastatin 10 mg tablet 10 mg PO DAILY #90 tabs 07/01/24 02/09/25 famotidine 20 mg tablet (Pepcid) 20 mg PO DAILY PRN gerd #90 08/03/24 02/09/25 tab-caps losartan 50 mg tablet 50 mg PO DAILY #90 tabs 09/18/24 02/09/25 cholecalciferol (vitamin D3) 625 625 mcg PO ONCE 09/19/24 02/09/25 mcg (25,000 unit) capsule losartan 25 mg tablet 25 mg PO DAILY #90 tabs 09/27/24 02/09/25 levothyroxine 75 mcg tablet 75 mcg PO DAILY #90 tab-caps 10/05/24 02/09/25 sildenafil 100 mg tablet (Viagra) 100 mg PO DAILY PRN sexual 10/05/24 02/09/25 activity #30 tabs furosemide 20 mg tablet (Lasix) 20 mg PO DAILY #90 tabs 10/31/24 02/09/25 ibuprofen 600 mg tablet 600 mg PO TID PRN pain #60 tabs 10/31/24 02/09/25 meclizine 25 mg tablet 25 mg PO QID PRN motion sickness 02/08/25 02/09/25 #10 tabs suvorexant 5 mg tablet (Belsomra) 5 mg PO QHS #30 tabs 02/08/25 02/09/25 Previous Rx's ?Medication ?Instructions ?Recorded omeprazole 40 mg capsule,delayed 40 mg PO DAILY #90 caps 10/17/19 release metoprolol succinate 50 mg 50 mg PO DAILY #90 tabs 03/20/24 tablet,extended release 24 hr inhalational spacing device #1 ea 05/16/24 (Aerochamber MV spacer) albuterol sulfate 90 mcg/actuation 2 puff inhalation QID PRN 06/19/24 aerosol inhaler (Ventolin HFA) shortness of breath or wheezing #8.5 grams atorvastatin 10 mg tablet 10 mg PO DAILY #90 tabs 07/01/24 famotidine 20 mg tablet (Pepcid) 20 mg PO DAILY PRN gerd #90 08/03/24 tab-caps losartan 50 mg tablet 50 mg PO DAILY #90 tabs 09/18/24 losartan 25 mg tablet 25 mg PO DAILY #90 tabs 09/27/24 levothyroxine 75 mcg tablet 75 mcg PO DAILY #90 tab-caps 10/05/24 sildenafil 100 mg tablet (Viagra) 100 mg PO DAILY PRN sexual 10/05/24 activity #30 tabs furosemide 20 mg tablet (Lasix) 20 mg PO DAILY #90 tabs 10/31/24 ibuprofen 600 mg tablet 600 mg PO TID PRN pain #60 tabs 10/31/24 meclizine 25 mg tablet 25 mg PO QID PRN motion sickness 02/08/25 #10 tabs suvorexant 5 mg tablet (Belsomra) 5 mg PO QHS #30 tabs 02/08/25 Allergies Allergy/AdvReac Type Severity Reaction Status Date / Time oxycodone HCl (From Percocet) AdvReac GI Verified 02/09/25 13:13 General Stated Complaint: GenMedical MANDY: 3 Review of Systems All systems reviewed & are unremarkable except as noted in HPI and below Constitutional Constitutional: Reports as per HPI, Denies frequent falls and Denies headache(s) Eyes Eyes: Denies loss of vision ENT Ears, Nose, Mouth, and Throat: Denies dizziness and Denies headache(s) Cardiovascular Cardiovascular: Reports as per HPI, Denies chest pain, Denies syncope, Denies pedal edema, Denies leg edema, Denies lightheadedness and Reports other (Episode of high blood pressure reading) Respiratory Respiratory: Denies cough Gastrointestinal Gastrointestinal: Denies abdominal pain, Denies diarrhea, Denies nausea and Denies vomiting Neurologic Neurologic: Denies confusion, Denies dizziness, Denies syncope, Denies frequent falls, Denies headache(s), Denies localized weakness, Denies loss of vision and Denies other visual disturbances Psychiatric Psychiatric: Denies confusion Exam Narrative Exam Narrative: Constitutional: Alert and oriented x3. Appears stated age. Normal body habitus. Head: Normocephalic, no trauma. Eyes: Pupils PERRL, Red reflex noted, EOM's intact. Eyelids symmetrical without lesions, discharge, or swelling. ENT: Bilateral TM's WNL, External ear normal to inspection, no mastoid TTP, swelling, or erythema, Nasal turbinates WNL, no nasal discharge. Normal dentition, Posterior pharynx WNL, no exudate. Chest: RRR, Normal S1, S2, distal pulses intact. Resp: Lungs clear to auscultation bilaterally, no wheezes, rales, or rhonchi. Abdomen: Soft, non-distended, Normoactive bowel sounds all 4 quads. Musculoskeletal: Normal gait, Moves all 4 extremities without difficulty. Skin: No suspicious rashes or lesions. Capillary refill less than 2 sec. Neurologic: Cranial nerves II-XII intact. Alert and oriented x 3. Motor: No deficits noted. Sensory: Intact bilaterally all 4 extremities. Hematologic/Lymphatic: No ecchymosis, no lymphadenopathy. Course Vital Signs Vital signs: Vital Signs Temperature 36.8 C 02/09/25 13:11 Pulse 80 02/09/25 13:11 Respiratory Rate 16 02/09/25 13:11 Blood Pressure 162/75 H 02/09/25 13:11 Pulse Oximetry 93 02/09/25 13:11 Temperature 36.8 C 02/09/25 13:15 Temperature Source Oral 02/09/25 13:15 Pulse 80 02/09/25 13:15 Respiratory Rate 16 02/09/25 13:15 Blood Pressure 162/75 H 02/09/25 13:15 Blood Pressure Position Sitting 02/09/25 13:15 Pulse Oximetry 93 02/09/25 13:15 Oxygen Delivery Method Room Air 02/09/25 13:15 Oxygen Flow Rate 0 02/09/25 13:15 Pain Level 0 02/09/25 13:15 Medical Decision Making 69 year old male presents to the ER with a episode of High BP at 0300 this am. Patient states he had a small amount of shortness of breath he took his normal BP meds and now his BP is 136/60. He denies any chest pain, headache, blurry vision. Denies any swelling in his legs. Has a follow up appt with Dr. Hartman soon. Patients blood pressure is WNL here, 136/60 HR 96. With no symptoms I did express that he should follow up with his prescribing provider regarding any dosage changes. He is also supposed to be using a CPap machine but he does not tolerate it. EKG was reviewed by Dr. Walls and myself ER attending, NSR, no ischemic changes or ectopy. No further treatment or eval warranted at this time as patient is asymptomatic and BP is WNL. Patient discharged to home with close follow up. This text was generated using Grid[employer]ation system, please disregard any oddities of phrase or misspellings. Medical Records Medical records reviewed: Yes I reviewed the patient's medical records. PFSH All Active Problems (Updated 02/09/25 @ 13:36 by Cristal Vallecillo NP) Temporary high blood pressure (Acute) Anal discharge (Acute) Hyperlipemia (Acute) Post-nasal drip (Acute) Visual disturbance (Acute) Mass of eye, left (Acute) Vertigo (Acute) Braulio-neglect of left side (Acute) Skin lesion (Acute) Skin rash (Acute) COVID-19 (Acute) Trigger finger, right ring finger (Acute) s/p Right ring trigger finger release with partial palmar fasciectomy on 10/31/24 Dupuytren's contracture of right hand (Acute) Ulnar nerve entrapment (Acute) Hemangioma (Acute) Left thigh Tinea pedis of both feet (Acute) Low vitamin B12 level (Acute) Fatigue (Acute) Carpal tunnel syndrome, right (Acute) PVD (peripheral vascular disease) (Chronic) Laceration of ear (Acute) Insomnia (Acute) COVID-19 (Acute ~01/02/22) Anxiety disorder (Acute) Flushing (Acute) Blocked tear duct (Acute) Posterior right knee pain (Acute) Seborrheic keratosis (Acute) Right forearm pain (Acute) Low back pain (Acute) Lightheadedness (Acute) Erectile dysfunction (Acute) History of arthroscopy of knee (Acute) History of wheezing (Acute) Rectal hemorrhage (Acute) Status post foot surgery (Acute) Caregiver burden (Acute 12/15/13) Hypothyroid (Chronic) check TSH Obesity (Chronic) continue to work on weight loss Dupuytren's contracture (Chronic) SVT (supraventricular tachycardia) (Acute) Rosacea (Acute) Peyronie disease (Acute) Neuropathic pain, arm (Acute) left arm that is improved Kidney stone (Acute 01/28/06) bilateral Essential hypertension (Acute 12/08/12) check labs continue same meds Dizziness (Acute 11/03/16) Chewing tobacco use (Acute) Chest pain (Acute) normal MPI 12/2007 normal MPI 10/14 Atopic dermatitis (Acute) Acquired hallux rigidus (Acute) Medical History Rosacea SVT (supraventricular tachycardia) Kidney stone Atopic dermatitis Neuropathic pain, arm Surgical History Trigger finger, right little finger s/p right little finger release DOS: 12/29/23 Hx of colonoscopy FOOT SURGERY Hallux rigidus of both feet with surgery in 2005 Arthroplasty of knee (~12/2010) pt. reports this was a scope Family History Mother , age 79 Heart disease Neoplasm LUNG Sister No problems noted. Maternal Grandfather No problems noted. Paternal Grandfather Prostate cancer Maternal Grandmother Cancer Paternal Grandmother Cancer Sister No problems noted. Sister No problems noted. Daughter No problems noted. Social History Smoking/Tobacco Use Status: Former Tobacco Use tobacco type: cigarettes and smokeless tobacco Quit Date: 03/01/07 Tobacco: How many years used: 14 Smokeless tobacco user: snuff Quit status: quit date established Second Hand Exposure: Yes Counseling given: other Smoking risk assessment performed?: Yes Alcohol Intake: current Alcohol Intake frequency: a few times a week Alcohol type: beer Details: 6 or more drinks monthly or less Drug use: Never Substance use type: does not use Counseling given: No Counseling provided: none Details: alcohol: t-1, couple beers Caregiver/Support person: No Household members: none Housing: house Communication Needs: Corrective Lenses Do you need help understanding health information?: Rarely Pets and animals: No Do you think of yourself as: straight/heterosexual Current gender identity: male What is your relationship status?: How often do you talk on the phone with friends or family?: decline to answer How often do you get together with friends or relatives?: decline to answer How often do you attend rastafarian or baptist services?: decline to answer Do you belong to any clubs or organized social groups?: decline to answer Panel score (0-1 are the most socially isolated patients): 0 What type of physical activity do you participate in: walking Duration: < 15 minutes/day Frequency: 1-2 times per week Special alex needs: No Seatbelt use: always Helmet use: No Drive intox or ride w/intox straight truck driver: No Do you feel safe at home: Yes Do you feel safe in your relationship?: Yes
== END 2025-02-09 13:47 | disposition home or self-care (01) ==
PROVIDERS: Emergency Provider Registered Nurse Emergency; PCP Family Medicine
DX: I10 Essential (primary) hypertension (principal); Z79.82 Long term (current) use of aspirin; Z79.899 Other long term (current) drug therapy; Z87.891 Personal history of nicotine dependence
CPT/HCPCS: 93005; 99283; 93010

== ENCOUNTER 2025-02-11 05:40 | Emergency (ER) | payer MEDICARE, OTHER, SELFPAY ==
[2025-02-11] VITALS (14 sets, daily range): BP systolic 140–180; BP diastolic 67–83; PULSE 71–97; RESP 16–21; TEMP 36.6–36.9; O2SAT 92–97
--- NOTE | 2025-02-11 05:45 | RT.EKG_ITS ---
APPROVED REPORT Exam: Resting ECG Reason for Exam: HTN Patient Location: E HR:79 bpm ECG Measurements Heart Rate 79 AXIS UT 188 P 28 QRSd 97 QRS 26 QT 388 T 33 QTc 445 Conclusion Sinus rhythm...normal P axis, V-rate 60- [address] segment or T wave abnormalities to suggest occlusive ND
--- NOTE | 2025-02-11 06:19 | W.ED.GENAD ---
Discharge Plan Disposition Patient Disposition: Home Condition: Good Discharge Details Clinical Impression: HBP (high blood pressure) Primary Care Provider: Alvaro Hernadez ED Provider: Paloma Ma Home Meds and New Rx's Prescriptions: Continued diphenhydramine HCl [Unisom SleepGels] 50 mg capsule 100 mg PO QHS levothyroxine 75 mcg tablet 75 mcg PO DAILY Qty: 90 3RF sildenafil [Viagra] 100 mg tablet 100 mg PO DAILY PRN (Reason: sexual activity) Qty: 30 2RF Rx Instructions: administer 30 minutes to 4 hours before activity loratadine [Allergy Relief (loratadine)] 10 mg tablet 10 mg PO DAILY acetaminophen [Tylenol 8 Hour] 650 mg tablet extended release 1,300 mg PO Q8H PRN cholecalciferol (vitamin D3) 625 mcg (25,000 unit) capsule 625 mcg PO ONCE losartan 25 mg tablet 25 mg PO DAILY Qty: 90 3RF Rx Instructions: Take with already prescribed 50mg Losartan for total of 75mg Daily. meclizine 25 mg tablet 25 mg PO QID PRN (Reason: motion sickness) Qty: 10 0RF Belsomra 5 mg tablet 5 mg PO QHS Qty: 30 1RF aspirin [Aspir-81] 81 MG tablet,delayed release (DR/EC) 81 mg PO DAILY Qty: 90 triamcinolone acetonide 80 GM ointment 80 gm Topical BID Qty: 1 omeprazole 40 mg capsule,delayed release(DR/EC) 40 mg PO DAILY Qty: 90 3RF metoprolol succinate 50 mg tablet extended release 24 hr 50 mg PO DAILY Qty: 90 3RF (DME) Aerochamber MV Spacer See Rx Instructions .ROUTE .MEDSUPPLY Qty: 1 0RF Rx Instructions: As directed albuterol sulfate [Ventolin HFA] 90 mcg/actuation HFA aerosol inhaler 2 puff inhalation QID PRN (Reason: shortness of breath or wheezing) Qty: 8.5 13RF atorvastatin 10 mg tablet 10 mg PO DAILY Qty: 90 3RF famotidine [Pepcid] 20 mg tablet 20 mg PO DAILY PRN (Reason: gerd) Qty: 90 3RF losartan 50 mg tablet 50 mg PO DAILY Qty: 90 3RF furosemide [Lasix] 20 mg tablet 20 mg PO DAILY Qty: 90 3RF ibuprofen 600 mg tablet 600 mg PO TID PRN (Reason: pain) Qty: 60 0RF Discharge Instructions Instructions: High Blood Pressure ED Additional Instructions: Take all of your medications including your blood pressure medications as prescribed. Call your primary care doctor in the morning to schedule an appointment within the next 48 hours to followup on your visit here. At that visit please discuss your BP and morning symptoms and whether you should be evalauted for sleep apnea. Return to the emergency department for new or worsening symptoms including chest pain, difficultly breathing, severe back pain, vision changes, numbness or weakness, or if you have any other concerns. Stand Alone Forms: Portal Information HPI General Mode of arrival: EMS. Date/Time Provider Initiated Documentation: 02/11/25 05:53. Limitations to Documentation: no limitations. Information obtained by: patient and EMS. HPI Narrative: 69yo M with hx HTN, PVD, hypothyroid, presenting for high blood pressure Woke this morning and felt a little short of breath; states he often feels this way first thing in the morning. Took his blood pressure and it was in the 200's. He took his morning metoprolol and called EMS. Currently feels entirely normal. No chest pain, shortness of breath, vision changes, LE edema, dizziness/confusion, back pain, or other concerns. Otherwise in his usual state of health. Related Data Home Medications ?Medication ?Instructions ?Recorded ?Confirmed aspirin 81 mg tablet,delayed 81 mg PO DAILY #90 tab-caps 11/06/15 02/11/25 release (Aspir-) triamcinolone acetonide 0.025 % 80 gm topical BID ##1 03/25/16 02/11/25 topical ointment omeprazole 40 mg capsule,delayed 40 mg PO DAILY #90 caps 10/17/19 02/11/25 release loratadine 10 mg tablet (Allergy 10 mg PO DAILY 02/25/21 02/11/25 Relief (loratadine)) acetaminophen 650 mg 1,300 mg PO Q8H PRN 03/18/23 02/11/25 tablet,extended release (Tylenol 8 Hour) diphenhydramine HCl 50 mg capsule 100 mg PO QHS 06/01/23 02/11/25 (Unisom SleepGels) metoprolol succinate 50 mg 50 mg PO DAILY #90 tabs 03/20/24 02/11/25 tablet,extended release 24 hr inhalational spacing device #1 ea 05/16/24 02/11/25 (Aerochamber MV spacer) albuterol sulfate 90 mcg/actuation 2 puff inhalation QID PRN 06/19/24 02/11/25 aerosol inhaler (Ventolin HFA) shortness of breath or wheezing #8.5 grams atorvastatin 10 mg tablet 10 mg PO DAILY #90 tabs 07/01/24 02/11/25 famotidine 20 mg tablet (Pepcid) 20 mg PO DAILY PRN gerd #90 08/03/24 02/11/25 tab-caps losartan 50 mg tablet 50 mg PO DAILY #90 tabs 09/18/24 02/11/25 cholecalciferol (vitamin D3) 625 625 mcg PO ONCE 09/19/24 02/11/25 mcg (25,000 unit) capsule losartan 25 mg tablet 25 mg PO DAILY #90 tabs 09/27/24 02/11/25 levothyroxine 75 mcg tablet 75 mcg PO DAILY #90 tab-caps 10/05/24 02/11/25 sildenafil 100 mg tablet (Viagra) 100 mg PO DAILY PRN sexual 10/05/24 02/11/25 activity #30 tabs furosemide 20 mg tablet (Lasix) 20 mg PO DAILY #90 tabs 10/31/24 02/11/25 ibuprofen 600 mg tablet 600 mg PO TID PRN pain #60 tabs 10/31/24 02/11/25 meclizine 25 mg tablet 25 mg PO QID PRN motion sickness 02/08/25 02/11/25 #10 tabs suvorexant 5 mg tablet (Belsomra) 5 mg PO QHS #30 tabs 02/08/25 02/11/25 Previous Rx's ?Medication ?Instructions ?Recorded omeprazole 40 mg capsule,delayed 40 mg PO DAILY #90 caps 10/17/19 release metoprolol succinate 50 mg 50 mg PO DAILY #90 tabs 03/20/24 tablet,extended release 24 hr inhalational spacing device #1 ea 05/16/24 (Aerochamber MV spacer) albuterol sulfate 90 mcg/actuation 2 puff inhalation QID PRN 06/19/24 aerosol inhaler (Ventolin HFA) shortness of breath or wheezing #8.5 grams atorvastatin 10 mg tablet 10 mg PO DAILY #90 tabs 07/01/24 famotidine 20 mg tablet (Pepcid) 20 mg PO DAILY PRN gerd #90 08/03/24 tab-caps losartan 50 mg tablet 50 mg PO DAILY #90 tabs 09/18/24 losartan 25 mg tablet 25 mg PO DAILY #90 tabs 09/27/24 levothyroxine 75 mcg tablet 75 mcg PO DAILY #90 tab-caps 10/05/24 sildenafil 100 mg tablet (Viagra) 100 mg PO DAILY PRN sexual 10/05/24 activity #30 tabs furosemide 20 mg tablet (Lasix) 20 mg PO DAILY #90 tabs 10/31/24 ibuprofen 600 mg tablet 600 mg PO TID PRN pain #60 tabs 10/31/24 meclizine 25 mg tablet 25 mg PO QID PRN motion sickness 02/08/25 #10 tabs suvorexant 5 mg tablet (Belsomra) 5 mg PO QHS #30 tabs 02/08/25 Allergies Allergy/AdvReac Type Severity Reaction Status Date / Time oxycodone HCl (From Percocet) AdvReac GI Verified 02/11/25 05:39 General Stated Complaint: GenMedical MANDY: 3 Review of Systems Narrative: see HPI Exam Narrative Exam Narrative: General: Alert, well appearing, well nourished, in no acute distress. Head: Normocephalic, atraumatic Neck: Trachea midline, ?Neck supple. Cardiac: ?RRR, no murmurs appreciated Resp: No respiratory distress. CTAB. Abd: ?Soft, non-distended, nontender : ?No suprapubic tenderness. No CVA tenderness. Extremities: ?No deformities.? No peripheral edema. Neurologic: GCS 15. ? Moves all extremities freely against gravity Course Vital Signs Vital signs: Vital Signs Temperature 36.9 C 02/11/25 05:40 Pulse 97 H 02/11/25 05:40 Respiratory Rate 18 02/11/25 05:40 Blood Pressure 180/83 H 02/11/25 05:40 Pulse Oximetry 96 02/11/25 05:40 Temperature 36.6 C 02/11/25 05:43 Temperature Source Oral 02/11/25 05:43 Pulse 75 02/11/25 06:07 Respiratory Rate 16 02/11/25 06:07 Respiratory Effort Normal, Non-Labored 02/11/25 05:43 Respiratory Depth Normal 02/11/25 05:43 Respiratory Pattern Normal 02/11/25 05:43 Blood Pressure 152/68 H 02/11/25 06:07 Blood Pressure Position Sitting 02/11/25 05:40 Pulse Oximetry 92 02/11/25 06:07 Oxygen Delivery Method Room Air 02/11/25 05:40 Oxygen Flow Rate 0 02/11/25 05:40 Pain Level 0 02/11/25 05:43 Medical Decision Making 69yo M with hx HTN, PVD, hypothyroid, presenting for high blood pressure Woke this morning and felt a little short of breath; states he often feels this way first thing in the morning. Took his blood pressure and it was in the 200's. He took his morning metoprolol and called EMS. Currently feels entirely normal. No chest pain, shortness of breath, vision changes, LE edema, dizziness/confusion, back pain, decreased urine output, or other concerns. Otherwise in his usual state of health. On arrival BP 180/83 and HR 97; BP at time of assessment 153/68 and HR 75 without additional interventions aside from home medication. Reassuring physical exam, radial pulses equal, lungs CTAB,. EKG was ordered from triage; NSR, appropriate intervals, no ST segment or T wave abnormalities to suggest occlusive CT. He is entirely asymptomatic at this time; nothing to suggest aortic dissection, pulmonary edema, ACS, renal failure, PRESS, SAH or other hypertensive emergency. No indication for further emergent workup. Appropriate for followup with his PCP. Discharged home; discharge instructions and return precautions were reviewed with patient who verbalized understanding. All questions were answered and he is in full agreement with the plan. PFSH All Active Problems (Updated 02/11/25 @ 06:21 by Paloma Ma MD) HBP (high blood pressure) (Chronic) Temporary high blood pressure (Acute) Anal discharge (Acute) Hyperlipemia (Acute) Post-nasal drip (Acute) Visual disturbance (Acute) Mass of eye, left (Acute) Vertigo (Acute) Braulio-neglect of left side (Acute) Skin lesion (Acute) Skin rash (Acute) COVID-19 (Acute) Trigger finger, right ring finger (Acute) s/p Right ring trigger finger release with partial palmar fasciectomy on 10/31/24 Dupuytren's contracture of right hand (Acute) Ulnar nerve entrapment (Acute) Hemangioma (Acute) Left thigh Tinea pedis of both feet (Acute) Low vitamin B12 level (Acute) Fatigue (Acute) Carpal tunnel syndrome, right (Acute) PVD (peripheral vascular disease) (Chronic) Laceration of ear (Acute) Insomnia (Acute) COVID-19 (Acute ~01/02/22) Anxiety disorder (Acute) Flushing (Acute) Blocked tear duct (Acute) Posterior right knee pain (Acute) Seborrheic keratosis (Acute) Right forearm pain (Acute) Low back pain (Acute) Lightheadedness (Acute) Erectile dysfunction (Acute) History of arthroscopy of knee (Acute) History of wheezing (Acute) Rectal hemorrhage (Acute) Status post foot surgery (Acute) Caregiver burden (Acute 12/15/13) Hypothyroid (Chronic) check TSH Obesity (Chronic) continue to work on weight loss Dupuytren's contracture (Chronic) SVT (supraventricular tachycardia) (Acute) Rosacea (Acute) Peyronie disease (Acute) Neuropathic pain, arm (Acute) left arm that is improved Kidney stone (Acute 01/28/06) bilateral Essential hypertension (Acute 12/08/12) check labs continue same meds Dizziness (Acute 11/03/16) Chewing tobacco use (Acute) Chest pain (Acute) normal MPI 12/2007 normal MPI 10/14 Atopic dermatitis (Acute) Acquired hallux rigidus (Acute) Medical History Rosacea SVT (supraventricular tachycardia) Kidney stone Atopic dermatitis Neuropathic pain, arm Surgical History Trigger finger, right little finger s/p right little finger release DOS: 12/29/23 Hx of colonoscopy FOOT SURGERY Hallux rigidus of both feet with surgery in 2005 Arthroplasty of knee (~12/2010) pt. reports this was a scope Family History Mother , age 79 Heart disease Neoplasm LUNG Sister No problems noted. Maternal Grandfather No problems noted. Paternal Grandfather Prostate cancer Maternal Grandmother Cancer Paternal Grandmother Cancer Sister No problems noted. Sister No problems noted. Daughter No problems noted. Social History Smoking/Tobacco Use Status: Former Tobacco Use tobacco type: cigarettes and smokeless tobacco Quit Date: 03/01/07 Tobacco: How many years used: 14 Smokeless tobacco user: snuff Quit status: quit date established Second Hand Exposure: Yes Counseling given: other Smoking risk assessment performed?: Yes Alcohol Intake: current Alcohol Intake frequency: 0-2 drinks per day Alcohol type: beer Details: 6 or more drinks monthly or less Drug use: Never Substance use type: does not use Counseling given: No Counseling provided: none Details: alcohol: t-1, couple beers Caregiver/Support person: No Household members: none Housing: house Communication Needs: Corrective Lenses Do you need help understanding health information?: Rarely Pets and animals: No Do you think of yourself as: straight/heterosexual Current gender identity: male What is your relationship status?: How often do you talk on the phone with friends or family?: decline to answer How often do you get together with friends or relatives?: decline to answer How often do you attend buddhist or faith services?: decline to answer Do you belong to any clubs or organized social groups?: decline to answer Panel score (0-1 are the most socially isolated patients): 0 What type of physical activity do you participate in: walking Duration: < 15 minutes/day Frequency: 1-2 times per week Special alex needs: No Seatbelt use: always Helmet use: No Drive intox or ride w/intox local truck driver: No Do you feel safe at home: Yes Do you feel safe in your relationship?: Yes PAWSS Have you Been Recently Intoxicated or Drunk Within the Last 30 days?: No Have you Ever Experienced Previous Episodes of Alcohol Withdrawal?: No Have you ever Experienced Withdrawal Seizures?: No Have you ever Experienced Delirium Tremens(DT)s?: No Have you ever undergone Alcohol Rehabilitation Treatment (i.e, inpt ot outpatient treatment programs)?: No Have you ever Experienced Blackouts?: No Have you ever Combined Alcohol with other Downers within the last 90 days?: No Have you ever Combined Alcohol with any other Substance of Abuse during the last 90 days?: No Positive Blood Alcohol level on Presentation? [PCS.BAL]: No Evidence of Increased Autonomic Activity (i.e. HR>120, tremor, sweating, agitation, nausea)?: No Result: 0
== END 2025-02-11 07:30 | disposition home or self-care (01) ==
PROVIDERS: Emergency Provider Student in an Organized Health Care Education/Training Program; PCP Family Medicine
DX: R03.0 Elevated blood-pressure reading, without diagnosis of hypertension (principal); R06.02 Shortness of breath
CPT/HCPCS: 99283 ×2; 36415; 93005; 93010